=== PATIENT | female | born 1990 | race Caucasian/White ===

== ENCOUNTER → 2016-09-20 | Outpatient (CLI) | payer OTHER, SELFPAY ==
--- NOTE | 2016-09-21 09:06 | US ---
Examination: Greater than 14 weeks transabdominal ultrasound with color Doppler and M-mode evaluatio n. HISTORY: Screening FINDINGS: LMP is 04/21/2016 EVALUATION: Posterior placenta with a cephalic lie and grade 1. Visually amniotic fluid is wit hin normal limits. Three-vessel cord is reported, not well characterized on provided images. Ventricles are within normal limits. Four chamber heart is noted. Heart rate is 145 beats per minute. BIOMETRY AND GESTATIONAL AGE: Biparietal diameter 5.1 cm. The abdominal circumference measures 16.9 cm. The femoral length is 3.5 cm with head circumference of 19 cm. Gestational age is 21 weeks and 3 days. The expected date of de livery is approximately 01/28/2017. Fetus weight is 431 grams. Overall the fetus is within the 34th p ercentile. Other detail anatomy summarized into PACs sheet after the images. No anatomical anomalies. IMPRESSION: Single active IU with cephalic fetus. Posterior placenta with grade 1, no placenta previa. No anomalies are seen. Amniotic fluid appears within normal limits.
== END ==
LOC: MW.US 11:13
CPT/HCPCS: 76805; 76805-26

== ENCOUNTER → 2016-11-04 | Outpatient (CLI) | payer OTHER, SELFPAY | LOC: MW.CHOBGYN 08:22 | PROVIDERS: ATTEND Advanced Practice Midwife | DX: Z34.90 Encounter for supervision of normal pregnancy, unspecified, unspecified trimester (principal) | CPT/HCPCS: 36415; 82950; 85027; 86850 ==

== ENCOUNTER 2017-02-03 00:03 | Inpatient (IN) | payer MEDICAID, OTHER, SELFPAY ==
[2017-02-03] MEDS ORDERED: Sodium Chloride 0.9% 10 ML Syringe FLUSH PRN (00:58)
[2017-02-03] MEDS ORDERED: Terbutaline 1 MG/ML SDV SUBCUT PRN (00:58)
[2017-02-03] MEDS ORDERED: Water For Irrigation,Sterile 1,000 ML Container IRR PRN (00:58)
[2017-02-03] MEDS ORDERED: Sodium Chloride 0.9% 2.5 ML Syringe FLUSH PRN (00:58)
[2017-02-03] MEDS ORDERED: Misoprostol 25 MCG (1/4 of 100 MCG) Tab PO PRN (00:58)
[2017-02-03] MEDS ORDERED: Methylergonovine 0.2 MG/1 ML Amp IM PRN (00:58)
[2017-02-03] MEDS ORDERED: Lidocaine 1% 50 ML MDV INJECT PRN (00:58)
[2017-02-03] MEDS ORDERED: Misoprostol 25 MCG (1/4 of 100 MCG) Tab VAG PRN (00:58)
[2017-02-03] MEDS ORDERED: Carboprost Tromethamine 250 MCG/1 ML Amp IM PRN (00:58)
[2017-02-03] MEDS ORDERED: Misoprostol 200 MCG Tab PO PRN (00:58)
[2017-02-03] MEDS ORDERED: Butorphanol 1 MG/ML SDV IVPUSH PRN (00:58)
[2017-02-03] MEDS ORDERED: Nalbuphine 10 MG/1 ML Vial IVPUSH PRN (00:58)
[2017-02-03] MEDS ORDERED: Misoprostol 25 MCG (1/4 of 100 MCG) Tab PO SCH (01:00)
[2017-02-03] MEDS ORDERED: Oxytocin/Lactated Ringers 30 UNIT/500 ML BAG IV SCH ×2 (01:00)
[2017-02-03] MEDS ORDERED: Misoprostol 25 MCG (1/4 of 100 MCG) Tab VAG SCH (01:00)
[2017-02-03] MEDS: Lactated Ringers 1,000 ML IV SCH ×3 (01:20→11:44)
--- NOTE | 2017-02-03 09:13 | PCM.LDHP ---
L&D History of Present Illness - General Date of Service: 02/03/17 Admit Problem/Dx: Patient Status Order with Admit Dx/Problem 02/03/17 00:58 Patient Status [ADT] Routine Admission Diagnosis/Problem Admission Diagnosis/Problem Source of Information: Patient History Limitations: Reports: No Limitations - History of Present Illness Pain Score: 10 Improves with: Reports: None Worsens with: Reports: None Associated Symptoms: Reports: N - Related Data Allergies/Adverse Reactions: Allergies Allergy/AdvReac Type Severity Reaction Status Date / Time No Known Allergies Allergy Verified 02/03/17 00:58 Past Medical History HAT TRIMMER History: Reports: , Spontaneous - Past Surgical History Female Surgical History: Reports: D&C Social & Family History - Family History Family Medical History: Noncontributory - Tobacco Use Smoking Status *Q: Never Smoker Second Hand Smoke Exposure: No - Caffeine Use Caffeine Use: Reports: Coffee, Soda - Recreational Drug Use Recreational Drug Use: No H&P Review of Systems - Review of Systems: Review Of Systems: See Below General: Reports: No Symptoms HEENT: Reports: No Symptoms Pulmonary: Reports: No Symptoms Cardiovascular: Reports: No Symptoms Gastrointestinal: Reports: No Symptoms Genitourinary: Reports: No Symptoms Musculoskeletal: Reports: No Symptoms Skin: Reports: No Symptoms Psychiatric: Reports: No Symptoms Neurological: Reports: No Symptoms Hematologic/Lymphatic: Reports: No Symptoms Immunologic: Reports: No Symptoms L&D Exam - Exam Exam: See Below - Vital Signs Weight: 63.503 kg - OB Specific Fundal Height In cm: 38 Contraction Intensity: Moderate Movement: Active Heart Tones: Present Presentation: Vertex - Roberson Score Roberson Score Consistency: Soft Roberson Score Effacement: 31-50% Roberson Score Dilation: 1-2 cm Roberson Score Infant's Station: -3 - Exam General: Alert, Oriented HEENT: PERRLA, Conjunctiva Clear, EACs Clear, EOMI, Hearing Intact, Mucosa Moist & [place], Nares Patent, Normal Nasal Septum, Posterior Pharynx Clear, TMs Clear Neck: Supple, Trachea Midline Lungs: Clear to Auscultation, Normal Respiratory Effort Cardiovascular: Regular Rate, Regular Rhythm GI/Abdominal Exam: Normal Bowel Sounds, Soft, Non-Tender, No Organomegaly, No Distention, No Abnormal Bruit, No Mass, Pelvis Stable Rectal Exam: Normal Exam, Normal Rectal Tone Genitourinary: Normal external exam, Normal bimanual exam, Normal speculum exam Back Exam: Normal Inspection, Full Range of Motion Extremities: Normal Inspection, Normal Range of Motion, Non-Tender, No Pedal Edema, Normal Capillary Refill Skin: Warm, Dry, Intact Neurological: Cranial Nerves Intact, Reflexes Equal Bilateral Psychiatric: Alert, Normal Affect, Normal Mood - Patient Data Lab Results Last 24 hrs: Laboratory Results - last 24 hr 02/03/17 02/03/17 Range/Units 01:18 01:18 WBC 12.85 H (4.0-11.0) K/uL RBC 4.05 L (4.30-5.90) M/uL Hgb 10.7 L (12.0-16.0) g/dL Hct 33.6 L (36.0-46.0) % MCV 83.0 (80.0-98.0) fL MCH 26.4 L (27.0-32.0) pg MCHC 31.8 (31.0-37.0) g/dL RDW Std Deviation 53.8 (28.0-62.0) fl RDW Coeff of Daisy 19 H (11.0-15.0) % Plt Count 239 (150-400) K/uL MPV 10.00 (7.40-12.00) fL Blood Type A POSITIVE Antibody Screen NEGATIVE Result Diagrams: 02/03/17 01:18 Problem List Initiated/Reviewed/Updated: Yes Orders Last 24hrs: Active Orders 24 hr Category Date Time Status Patient Status [ADT] Routine ADT 02/03/17 00:58 Active Bedrest Bathroom Privileges [RC] ASDIRECTED Care 02/03/17 00:58 Active Communication Order [RC] ASDIRECTED Care 02/03/17 00:58 Active Communication Order [RC] ASDIRECTED Care 02/03/17 00:58 Active Communication Order [RC] ASDIRECTED Care 02/03/17 00:58 Active Heart Tones [RC] CONTINUOUS Care 02/03/17 00:58 Active Non Stress Test [RC] PER UNIT ROUTINE Care 02/03/17 00:58 Active May Shower [RC] ASDIRECTED Care 02/03/17 00:58 Active Notify Provider [RC] PRN Care 02/03/17 00:58 Active Notify Provider [RC] PRN Care 02/03/17 00:58 Active Notify Provider [RC] PRN Care 02/03/17 00:58 Active Notify Provider [RC] STAT Care 02/03/17 00:58 Active Oxygen Therapy [RC] ASDIRECTED Care 02/03/17 00:58 Active Up ad Alyse [RC] ASDIRECTED Care 02/03/17 00:58 Active Vaginal Exam [RC] PRN Care 02/03/17 00:58 Active Vital Signs [RC] PER UNIT ROUTINE Care 02/03/17 00:58 Active Regular Diet [DIET] Diet 02/03/17 Breakfast Active Butorphanol [Stadol] Med 02/03/17 00:58 Active 1 mg IVPUSH ASDIRECTED PRN Carboprost Tromethamine [Hemabate DS] Med 02/03/17 00:58 Active 250 mcg IM ASDIRECTED PRN Lactated Ringers [Ringers, Lactated] 1,000 ml Med 02/03/17 01:00 Active IV ASDIRECTED Lidocaine 1% [Xylocaine 1%] Med 02/03/17 00:58 Active 50 ml INJECT .ONCE PRN Methylergonovine [Methergine] Med 02/03/17 00:58 Active 0.2 mg IM ASDIRECTED PRN Misoprostol [Cytotec] Med 02/03/17 00:58 Active 200 mcg PO .ONCE PRN Misoprostol [Cytotec] Med 02/03/17 01:00 Active 25 mcg PO .ONCE Misoprostol [Cytotec] Med 02/03/17 00:58 Active 25 mcg PO Q4H PRN Misoprostol [Cytotec] Med 02/03/17 01:00 Active 25 mcg VAG .ONCE Misoprostol [Cytotec] Med 02/03/17 00:58 Active 25 mcg VAG Q4H PRN Nalbuphine [Nubain] Med 02/03/17 00:58 Active 10 mg IVPUSH ASDIRECTED PRN Oxytocin/Lactated Ringers [Pitocin in LR 30 Units/500 Med 02/03/17 01:00 Active ML] 30 unit in 500 ml IV TITRATE Sodium Chloride 0.9% [Saline Flush] Med 02/03/17 00:58 Active 10 ml FLUSH ASDIRECTED PRN Sodium Chloride 0.9% [Saline Flush] Med 02/03/17 00:58 Active 2.5 ml FLUSH ASDIRECTED PRN Terbutaline [Brethine] Med 02/03/17 00:58 Active 0.25 mg SUBCUT ASDIRECTED PRN Water For Irrigation,Sterile [Sterile Water for Med 02/03/17 00:58 Active Irrigation] 1,000 ml IRR ASDIRECTED PRN Scalp Electrode [WOMSER] Per Unit Routine Oth 02/03/17 00:58 Ordered Medication Administration Instruction [OM.PC] Q3H Oth 02/03/17 01:00 Ordered Peripheral IV Insertion Adult [OM.PC] Routine Oth 02/03/17 00:58 Ordered Resuscitation Status Routine Resus Stat 02/03/17 00:58 Ordered Medication Orders Butorphanol Tartrate (Stadol) 1 mg IVPUSH ASDIRECTED PRN PRN Reason: Pain Last Admin: 02/03/17 09:04 Dose: 1 mg Carboprost Tromethamine (Hemabate Ds) 250 mcg IM ASDIRECTED PRN PRN Reason: Post Hemorrhage Lactated Ringer's (Ringers, Lactated) 1,000 mls @ 150 mls/hr IV ASDIRECTED TRAVIS Last Admin: 02/03/17 05:49 Dose: 150 mls/hr Infusion: 02/03/17 05:49 Dose: 150 mls/hr Admin: 02/03/17 01:20 Dose: 150 mls/hr Oxytocin/Lactated Ringer's (Pitocin In Lr 30 Units/500 Ml) 30 unit in 500 mls @ 2 mls/hr IV TITRATE TRAVIS; 2 MUNITS/MIN PRN Reason: Protocol Lidocaine HCl (Xylocaine 1%) 50 ml INJECT .ONCE PRN PRN Reason: Laceration repair Methylergonovine Maleate (Methergine) 0.2 mg IM ASDIRECTED PRN PRN Reason: Post Hemorrhage Misoprostol (Cytotec) 200 mcg PO .ONCE PRN PRN Reason: Post Hemorrhage Misoprostol (Cytotec) 25 mcg VAG .ONCE TRAVIS Last Admin: 02/03/17 01:35 Dose: 25 mcg Misoprostol (Cytotec) 25 mcg VAG Q4H PRN PRN Reason: Cervical Ripening Stop: 02/04/17 04:59 Last Admin: 02/03/17 05:50 Dose: 25 mcg Misoprostol (Cytotec) 25 mcg PO .ONCE TRVAIS Last Admin: 02/03/17 01:36 Dose: 25 mcg Misoprostol (Cytotec) 25 mcg PO Q4H PRN PRN Reason: Cervical Ripening Stop: 02/04/17 04:59 Last Admin: 02/03/17 05:50 Dose: 25 mcg Nalbuphine HCl (Nubain) 10 mg IVPUSH ASDIRECTED PRN PRN Reason: Pain (severe 7-10) Stop: 02/05/17 00:59 Sodium Chloride (Saline Flush) 10 ml FLUSH ASDIRECTED PRN PRN Reason: Keep Vein Open Sodium Chloride (Saline Flush) 2.5 ml FLUSH ASDIRECTED PRN PRN Reason: Keep Vein Open Sterile Water (Sterile Water For Irrigation) 1,000 ml IRR ASDIRECTED PRN PRN Reason: delivery Terbutaline Sulfate (Brethine) 0.25 mg SUBCUT ASDIRECTED PRN PRN Reason: Tacysystole Assessment/Plan Comment:: Postdate P2002 admited for induction.
--- NOTE | 2017-02-03 10:21 | PCM.PREANE ---
Preanesthetic Assessment - Anesthesia/Transfusion/Family Hx Anesthesia History: Prior Anesthesia Without Reaction Transfusion History: No Prior Transfusion(s) - Review of Systems General: No Symptoms Pulmonary: No Symptoms Cardiovascular: No Symptoms Gastrointestinal: No Symptoms Neurological: No Symptoms Other: Reports: None - Physical Assessment Height: 5 ft 5 in Weight: 63.503 kg ASA Class: 2 Mental Status: Alert & Oriented x3 Airway Class: Mallampati = 2 Dentition: Reports: Normal Dentition Thyro-Mental Finger Breadths: 3 Mouth Opening Finger Breadths: 3 ROM/Head Extension: Full Lungs: Clear to Auscultation, Normal Respiratory Effort Cardiovascular: Regular Rate, Regular Rhythm - Lab Values: Laboratory Last Values WBC 12.85 K/uL (4.0-11.0) H 02/03/17 01:18 RBC 4.05 M/uL (4.30-5.90) L 02/03/17 01:18 Hgb 10.7 g/dL (12.0-16.0) L 02/03/17 01:18 Hct 33.6 % (36.0-46.0) L 02/03/17 01:18 MCV 83.0 fL (80.0-98.0) 02/03/17 01:18 MCH 26.4 pg (27.0-32.0) L 02/03/17 01:18 MCHC 31.8 g/dL (31.0-37.0) 02/03/17 01:18 RDW Std Deviation 53.8 fl (28.0-62.0) 02/03/17 01:18 RDW Coeff of Daisy 19 % (11.0-15.0) H 02/03/17 01:18 Plt Count 239 K/uL (150-400) 02/03/17 01:18 MPV 10.00 fL (7.40-12.00) 02/03/17 01:18 Blood Type A POSITIVE 02/03/17 01:18 Antibody Screen NEGATIVE 02/03/17 01:18 - Allergies Allergies/Adverse Reactions: Allergies Allergy/AdvReac Type Severity Reaction Status Date / Time No Known Allergies Allergy Verified 02/03/17 00:58 - Acknowledgements Anesthesia Type Planned: Epidural Pt an Appropriate Candidate for the Planned Anesthesia: Yes Alternatives and Risks of Anesthesia Discussed w Pt/Guardian: Yes Pt/Guardian Understands and Agrees with Anesthesia Plan: Yes PreAnesthesia Questionnaire HEENT History: Reports: None Cardiovascular History: Reports: None Respiratory History: Reports: None Gastrointestinal History: Reports: GERD Genitourinary History: Reports: None MEDICATION NURSE History: Reports: , Spontaneous : 4 Para: 2 LMP (Approximate): Musculoskeletal History: Reports: None Neurological History: Reports: None Psychiatric History: Reports: None Endocrine/Metabolic History: Reports: None Hematologic History: Reports: None Immunologic History: Reports: None Oncologic (Cancer) History: Reports: None Dermatologic History: Reports: None - Infectious Disease History Infectious Disease History: Reports: None - Past Surgical History Female Surgical History: Reports: D&C - SUBSTANCE USE Smoking Status *Q: Never Smoker Second Hand Smoke Exposure: No Recreational Drug Use History: No - CURRENT (IN HOUSE) MEDS Current Meds: Current Medications Butorphanol Tartrate (Stadol) 1 mg IVPUSH ASDIRECTED PRN PRN Reason: Pain Last Admin: 02/03/17 09:04 Dose: 1 mg Carboprost Tromethamine (Hemabate Ds) 250 mcg IM ASDIRECTED PRN PRN Reason: Post Hemorrhage Lactated Ringer's (Ringers, Lactated) 1,000 mls @ 150 mls/hr IV ASDIRECTED TRAVIS Last Admin: 02/03/17 05:49 Dose: 150 mls/hr Oxytocin/Lactated Ringer's (Pitocin In Lr 30 Units/500 Ml) 30 unit in 500 mls @ 2 mls/hr IV TITRATE TRAVIS; 2 MUNITS/MIN PRN Reason: Protocol Lidocaine HCl (Xylocaine 1%) 50 ml INJECT .ONCE PRN PRN Reason: Laceration repair Methylergonovine Maleate (Methergine) 0.2 mg IM ASDIRECTED PRN PRN Reason: Post Hemorrhage Misoprostol (Cytotec) 200 mcg PO .ONCE PRN PRN Reason: Post Hemorrhage Misoprostol (Cytotec) 25 mcg VAG .ONCE TRAVIS Last Admin: 02/03/17 01:35 Dose: 25 mcg Misoprostol (Cytotec) 25 mcg VAG Q4H PRN PRN Reason: Cervical Ripening Stop: 02/04/17 04:59 Last Admin: 02/03/17 05:50 Dose: 25 mcg Misoprostol (Cytotec) 25 mcg PO .ONCE TRAVIS Last Admin: 02/03/17 01:36 Dose: 25 mcg Misoprostol (Cytotec) 25 mcg PO Q4H PRN PRN Reason: Cervical Ripening Stop: 02/04/17 04:59 Last Admin: 02/03/17 05:50 Dose: 25 mcg Nalbuphine HCl (Nubain) 10 mg IVPUSH ASDIRECTED PRN PRN Reason: Pain (severe 7-10) Stop: 02/05/17 00:59 Sodium Chloride (Saline Flush) 10 ml FLUSH ASDIRECTED PRN PRN Reason: Keep Vein Open Sodium Chloride (Saline Flush) 2.5 ml FLUSH ASDIRECTED PRN PRN Reason: Keep Vein Open Sterile Water (Sterile Water For Irrigation) 1,000 ml IRR ASDIRECTED PRN PRN Reason: delivery Terbutaline Sulfate (Brethine) 0.25 mg SUBCUT ASDIRECTED PRN PRN Reason: Tacysystole Discontinued Medications Oxytocin/Lactated Ringer's (Pitocin In Lr 30 Units/500 Ml) 30 unit in 500 mls @ 999 mls/hr IV ASDIRECTED TRAVIS PRN Reason: 999 MUNITS/MIN Stop: 02/03/17 01:31
[2017-02-03] MEDS ORDERED: fentaNYL 100 MCG/2 ML SDV ONE (10:27)
[2017-02-03] MEDS ORDERED: Ropivacaine HCl/PF 100 ML ONE (10:27)
[2017-02-03] MEDS ORDERED: ePHEDrine 50 MG/ML SDV ONE (10:46)
[2017-02-03] MEDS ORDERED: Lanolin 100% Cream 7 GM Tube TOP PRN (12:43)
[2017-02-03] MEDS ORDERED: Docusate Sodium 100 MG Cap PO PRN (12:43)
[2017-02-03] MEDS ORDERED: Witch Hazel Medicated Pads 40/Jar TOP PRN (12:43)
[2017-02-03] MEDS ORDERED: Ibuprofen 400 MG Tab PO PRN (12:43)
[2017-02-03] MEDS ORDERED: Benzocaine/Menthol 20%-0.5% Spray 78 GM Cannister TOP PRN (12:43)
[2017-02-03] MEDS ORDERED: Bisacodyl 10 MG Supp RECTAL PRN (12:43)
[2017-02-03] MEDS ORDERED: Acetaminophen 500 MG Tab PO PRN ×2 (12:43)
[2017-02-03] MEDS: Ibuprofen 800 MG Tab PO PRN (20:27)
[2017-02-04] MEDS: oxyCODONE 5 MG Tab PO PRN ×2 (00:07→02:21)
--- NOTE | 2017-02-04 01:58 | OR ---
SURGEON: Rudolph Shen MD DATE OF PROCEDURE: DELIVERY NOTE: This patient is 26, she is para 2-0-0-2. She is followed in our clinic and primarily by the nurse i o psychologist. She is 40 plus 6. She is admitted for elective induction. We used Cytotec p.o. and vaginally. She responded to that very well. She progressed to 3 cm. She had epidural anesthesia at that time for labor pain and then continued to progress without any problem until became complete-complete. The patient's heart rate was essentially category 1 through the entire process of labor. The patient has attempted pushing and because of the epidural, the patient was unable to accomplish vaginal , so I used a Kiwi vacuum extraction to assist the patient and that was done without any problem. The fetus was delivered, the male cried immediately. score reported 8 and 9. The placenta delivered spontaneous, complete, and intact, and there was no perineal laceration. There was no labial laceration, and there was no need for episiotomy. The estimated blood loss was 250 mL. No complication in this . RAINE / CARMEN /[id number]
--- NOTE | 2017-02-04 07:39 | PCM48HPAN ---
Post Anesthesia Note - EVALUATION WITHIN 48HRS OF ANESTHETIC Vital Signs in Normal Range: Yes Patient Participated in Evaluation: Yes Respiratory Function Stable: Yes Airway Patent: Yes Cardiovascular Function Stable: Yes Hydration Status Stable: Yes Pain Control Satisfactory: Yes Nausea and Vomiting Control Satisfactory: Yes Mental Status Recovered: Yes
--- NOTE | 2017-02-04 09:05 | PCM.PNPP ---
- General Info Date of Service: 02/04/17 Functional Status: Reports: Pain Controlled - Review of Systems General: Reports: No Symptoms HEENT: Reports: No Symptoms Pulmonary: Reports: No Symptoms Cardiovascular: Reports: No Symptoms Gastrointestinal: Reports: No Symptoms Genitourinary: Reports: No Symptoms Musculoskeletal: Reports: No Symptoms Skin: Reports: No Symptoms Neurological: Reports: No Symptoms Psychiatric: Reports: No Symptoms - General Info Date of Service: 02/04/17 - Patient Data Vital Signs - most recent: Last Vital Signs Temp 37.1 C 02/03/17 19:51 Pulse 75 02/03/17 19:51 Resp 15 02/03/17 19:51 BP 91/50 L 02/03/17 19:51 Pulse Ox 97 02/03/17 19:51 Weight - most recent: 63.503 kg Lab Results - last 24 hrs: Laboratory Results - last 24 hr 02/04/17 Range/Units 04:58 Hgb 9.2 L (12.0-16.0) g/dL Hct 29.2 L (36.0-46.0) % Med Orders - Current: Current Medications Acetaminophen (Tylenol Extra Strength) 500 mg PO Q4H PRN PRN Reason: Pain Acetaminophen (Tylenol Extra Strength) 1,000 mg PO Q4H PRN PRN Reason: Pain Benzocaine/Menthol (Dermoplast Pain Relief 20%-0.5% [place]) 78 gm TOP ASDIRECTED PRN PRN Reason: Perineal Comfort Measure Bisacodyl (Dulcolax) 10 mg RECTAL .ONCE PRN PRN Reason: Constipation Docusate Sodium (Colace) 100 mg PO BID PRN PRN Reason: Constipation Emollient Ointment (Lansinoh Hpa) 0 gm TOP ASDIRECTED PRN PRN Reason: Sore Nipples Ibuprofen (Motrin) 400 mg PO Q4H PRN PRN Reason: Pain Last Admin: 02/04/17 02:20 Dose: 400 mg Ibuprofen (Motrin) 800 mg PO Q6H PRN PRN Reason: Pain Last Admin: 02/03/17 20:27 Dose: 800 mg Oxycodone HCl (Oxycodone) 5 mg PO Q2H PRN PRN Reason: Pain Last Admin: 02/04/17 02:21 Dose: 5 mg Witch [place] (Tucks) 1 pad TOP ASDIRECTED PRN PRN Reason: comfort care Discontinued Medications Butorphanol Tartrate (Stadol) 1 mg IVPUSH ASDIRECTED PRN PRN Reason: Pain Last Admin: 02/03/17 09:04 Dose: 1 mg Carboprost Tromethamine (Hemabate Ds) 250 mcg IM ASDIRECTED PRN PRN Reason: Post Hemorrhage Ephedrine Sulfate (Ephedrine Sulfate) Confirm Administered Dose 50 mg .ROUTE .STK-MED ONE Stop: 02/03/17 10:47 Fentanyl (Sublimaze) Confirm Administered Dose 100 mcg .ROUTE .STK-MED ONE Stop: 02/03/17 10:28 Lactated Ringer's (Ringers, Lactated) 1,000 mls @ 150 mls/hr IV ASDIRECTED TRAVIS Last Admin: 02/03/17 11:44 Dose: 150 mls/hr Oxytocin/Lactated Ringer's (Pitocin In Lr 30 Units/500 Ml) 30 unit in 500 mls @ 999 mls/hr IV ASDIRECTED TRAVIS PRN Reason: 999 MUNITS/MIN Stop: 02/03/17 01:31 Last Admin: 02/03/17 12:51 Dose: 999 munits/min, 999 mls/hr Oxytocin/Lactated Ringer's (Pitocin In Lr 30 Units/500 Ml) 30 unit in 500 mls @ 2 mls/hr IV TITRATE TRAVIS; 2 MUNITS/MIN PRN Reason: Protocol Last Admin: 02/03/17 12:21 Dose: 999 munits/min, 999 mls/hr Ropivacaine (Naropin 0.2%) Confirm Administered Dose 100 mls @ as directed .ROUTE .STK-MED ONE Stop: 02/03/17 10:28 Lidocaine HCl (Xylocaine 1%) 50 ml INJECT .ONCE PRN PRN Reason: Laceration repair Methylergonovine Maleate (Methergine) 0.2 mg IM ASDIRECTED PRN PRN Reason: Post Hemorrhage Misoprostol (Cytotec) 200 mcg PO .ONCE PRN PRN Reason: Post Hemorrhage Misoprostol (Cytotec) 25 mcg VAG .ONCE TRAVIS Last Admin: 02/03/17 01:35 Dose: 25 mcg Misoprostol (Cytotec) 25 mcg VAG Q4H PRN PRN Reason: Cervical Ripening Stop: 02/04/17 04:59 Last Admin: 02/03/17 05:50 Dose: 25 mcg Misoprostol (Cytotec) 25 mcg PO .ONCE TRAVIS Last Admin: 02/03/17 01:36 Dose: 25 mcg Misoprostol (Cytotec) 25 mcg PO Q4H PRN PRN Reason: Cervical Ripening Stop: 02/04/17 04:59 Last Admin: 02/03/17 05:50 Dose: 25 mcg Nalbuphine HCl (Nubain) 10 mg IVPUSH ASDIRECTED PRN PRN Reason: Pain (severe 7-10) Stop: 02/05/17 00:59 Sodium Chloride (Saline Flush) 10 ml FLUSH ASDIRECTED PRN PRN Reason: Keep Vein Open Sodium Chloride (Saline Flush) 2.5 ml FLUSH ASDIRECTED PRN PRN Reason: Keep Vein Open Sterile Water (Sterile Water For Irrigation) 1,000 ml IRR ASDIRECTED PRN PRN Reason: delivery Terbutaline Sulfate (Brethine) 0.25 mg SUBCUT ASDIRECTED PRN PRN Reason: Tacysystole - Interaction Infant Disposition, : [place] in Room with Family Interaction: Holding Infant Feeding: Attempted ; Nursed Fair/Poor Support Person: - Recovery Exam Fundal Tone: Firm Fundal Level: 1 Fingerbreadths Below Umbilicus Fundal Placement: Midline Lochia Amount: Scant Lochia Color: Rubra/Red Perineum Description: Intact, Minimal Bruising/Swelling Episiotomy/Laceration: None Bladder Status: Voiding Urinary Elimination: Voided - Exam General: alert, oriented HEENT: Pupils equal Neck: supple Lungs: Clear to Auscultation, Normal Respiratory Effort Cardiovascular: Regular Rate, Regular Rhythm GI/Abdominal Exam: Normal Bowel Sounds, Soft, Non-Tender, No Organomegaly, No Distention, No Abnormal Bruit, No Mass, Pelvis Stable Extremities: Normal Inspection, Normal Range of Motion, Non-Tender, No Pedal Edema, Normal Capillary Refill Skin: warm, dry, intact Wound/Incisions: healing well Neurological: no new focal deficit Psy/Mental Status: alert, normal affect, normal mood - Problem List Review Problem List Initiated/Reviewed/Updated: Yes - My Orders Last 24 Hours: My Active Orders 02/03/17 12:43 Patient Status [ADT] Routine May Shower [RC] ASDIRECTED Up ad Alyse [RC] ASDIRECTED Vital Signs [RC] PER UNIT ROUTINE Acetaminophen [Tylenol Extra Strength] 1,000 mg PO Q4H PRN Acetaminophen [Tylenol Extra Strength] 500 mg PO Q4H PRN Benzocaine/Menthol [Dermoplast Pain Relief 20%-0.5% [place]] 78 gm TOP ASDIRECTED PRN Bisacodyl [Dulcolax] 10 mg RECTAL .ONCE PRN Docusate Sodium [Colace] 100 mg PO BID PRN Ibuprofen [Motrin] 400 mg PO Q4H PRN Ibuprofen [Motrin] 800 mg PO Q6H PRN Lanolin [Lansinoh HPA] See Dose Instructions TOP ASDIRECTED PRN Witch Lauren [Tucks] 1 pad TOP ASDIRECTED PRN oxyCODONE 5 mg PO Q2H PRN Assess Lochia [WOMSER] Per Unit Routine Assess Uterine Involution [WOMSER] Per Unit Routine Peripheral IV Discontinue [OM.PC] Routine Resuscitation Status Routine 02/04/17 Breakfast Regular Diet [DIET] - Assessment Assessment:: Status post normal spontaneous vaginal delivery doing well or sooner home today - Plan Plan:: Postdate P2002 admited for induction.
[2017-02-04] MEDS: Ibuprofen 800 MG Tab PO PRN (10:00)
[2017-02-04 11:06] VITALS: BP 102/55
== END 2017-02-04 17:15 | disposition home or self-care (01) | DRG 775 ==
LOC: MW.OBCHECK 00:03 → MW.OB 00:05 → MW.OBCHECK 00:23 → MW.OB 00:23 → OBSVTOIN 12:34 → MW.OB 15:42
PROVIDERS: ADMIT Obstetrics & Gynecology; ATTEND Obstetrics & Gynecology
PROC: 10D07Z6 Extraction of Products of Conception, Vacuum, Via Natural or Artificial Opening (ICD-10-PCS; principal; 2017-02-03)
PROC: 3E0P7GC Introduction of Other Therapeutic Substance into Female Reproductive, Via Natural or Artificial Opening (ICD-10-PCS; 2017-02-03)
DX: O66.5 Attempted application of vacuum extractor and forceps (principal); Z3A.40 40 weeks gestation of pregnancy; Z37.0 Single live birth
CPT/HCPCS: 01967; 36415; 51703; 59025; 85014; 85018; 85027; 86850; 86900; 86901; A9270-GY; J0595; J7120

== ENCOUNTER 2017-02-21 11:31 | Emergency (ER) | payer OTHER, SELFPAY ==
[2017-02-21] MEDS ORDERED: Sodium Chloride 0.9% 1,000 ML IV ONE (11:42)
--- NOTE | 2017-02-21 12:00 | EDM.PDOC ---
ED HPI GENERAL MEDICAL PROBLEM - General Chief Complaint: Abdominal Pain Stated Complaint: BACK PAIN Time Seen by Provider: 02/21/17 11:35 Source of Information: Reports: Patient, Family History Limitations: Reports: No Limitations - History of Present Illness INITIAL COMMENTS - FREE TEXT/NARRATIVE: History of present illness: 26-year-old female comes in complaining of right-sided lower back pain. Patient is status post 2 weeks vaginal delivery/induction. Patient indicates that she is experiencing pain in her back at the right flank radiating around to her abdomen. Patient does acknowledge that it was a protracted delivery with extensive pushing, as well as the fact she is caring her baby in one of the large plastic carriers. Review of systems: As per history of present illness and below otherwise all systems reviewed and negative. Past medical history: As per history of present illness and as reviewed below otherwise noncontributory. Surgical history: As per history of present illness and as reviewed below otherwise noncontributory. Social history: No reported history of drug or alcohol abuse. Family history: As per history of present illness and as reviewed below otherwise noncontributory. Physical exam: HEENT: Atraumatic, normocephalic, pupils reactive, negative for conjunctival pallor or scleral icterus, mucous membranes moist, throat clear, neck supple, nontender, trachea midline. Lungs: Clear to auscultation, breath sounds equal bilaterally, chest nontender. Heart: S1S2, regular, negative for clicks, rubs, or JVD. Abdomen: Soft, nondistended, nontender. Right-sided flank pain radiating around to right side of her abdomen, Negative for masses or hepatosplenomegaly. Negative for costovertebral tenderness. Pelvis: Stable nontender. Genitourinary: Deferred. Rectal: Deferred. Extremities: Atraumatic, negative for cords or calf pain. Neurovascular unremarkable. Neuro: Awake, alert, oriented. Cranial nerves II through XII unremarkable. Cerebellum unremarkable. Motor and sensory unremarkable throughout. Exam nonfocal. Diagnostics: [UA] Therapeutics: [IV fluid] Impression: [UTI] Plan: [Macrobid] Definitive disposition and diagnosis as appropriate pending reevaluation and review of above. 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 Musculoskeletal History: Reports: None Neurological History: Reports: None Psychiatric History: Reports: None Endocrine/Metabolic History: Reports: None Hematologic History: Reports: None Immunologic History: Reports: None Oncologic (Cancer) History: Reports: None Dermatologic History: Reports: None - Infectious Disease History Infectious Disease History: Reports: None - Past Surgical History Female Surgical History: Reports: D&C Social & Family History - Family History Family Medical History: Noncontributory - Tobacco Use Smoking Status *Q: Never Smoker Second Hand Smoke Exposure: No - Caffeine Use Caffeine Use: Reports: Coffee, Soda - Recreational Drug Use Recreational Drug Use: No ED ROS GENERAL - Review of Systems Review Of Systems: See Below (See history of present illness) ED EXAM, GENERAL - Physical Exam Exam: See Below (See history of present illness) Course - Vital Signs Last Recorded V/S: Last Vital Signs Temp 36.4 C 02/21/17 11:36 Pulse 75 02/21/17 11:36 Resp 18 02/21/17 11:36 BP 120/60 02/21/17 11:36 Pulse Ox 99 02/21/17 11:36 - Orders/Labs/Meds Orders: Active Orders 24 hr Category Date Time Status CULTURE URINE [RM] Stat Lab 02/21/17 12:23 Ordered Sodium Chloride 0.9% [Normal Saline] 1,000 ml Med 02/21/17 11:42 Active IV STAT Medication Orders Sodium Chloride (Normal Saline) 1,000 mls @ 999 mls/hr IV STAT ONE Stop: 02/21/17 12:42 Last Admin: 02/21/17 12:09 Dose: 999 mls/hr Labs: Laboratory Tests 02/21/17 Range/Units 11:40 Urine Color YELLOW Urine Appearance SLT CLOUDY Urine pH 6.0 (5.0-8.0) Ur Specific [place] 1.025 (1.001-1.035) Urine Protein 100 (NEGATIVE) mg/dL Urine Glucose (UA) NEGATIVE (NEGATIVE) mg/dL Urine Ketones NEGATIVE (NEGATIVE) mg/dL Urine Occult Blood LARGE H (NEGATIVE) Urine Nitrite POSITIVE H (NEGATIVE) Urine Bilirubin NEGATIVE (NEGATIVE) Urine Urobilinogen 0.2 (<2.0) EU/dL Ur Leukocyte Esterase MODERATE (NEGATIVE) Urine RBC 5-10 (0-2/HPF) Urine WBC TO NUMEROUS TO COUNT H (0-5/HPF) Ur Epithelial Cells FEW (NONE-FEW) Urine Bacteria 1+ H (NEGATIVE) Meds: Medications Generic Name Dose Route Start Last Admin Trade Name Freq PRN Reason Stop Dose Admin Sodium Chloride 1,000 mls @ 999 mls/hr 02/21/17 11:42 02/21/17 12:09 Normal Saline IV 02/21/17 12:42 999 mls/hr STAT ONE Administration Departure - Departure Time of Disposition: 12:27 Disposition: Home, Self-Care 01 Condition: Good Clinical Impression: UTI (urinary tract infection) - Discharge Information Prescriptions: Nitrofurantoin Monohyd/M-Cryst [Macrobid 100 mg Capsule] 100 mg PO BID #20 capsule Forms: ED Department Discharge Additional Instructions: The following information is given to patients seen in the emergency department who are being discharged to home. This information is to outline your options for follow-up care. We provide all patients seen in our emergency department with a follow-up referral. The need for follow-up, as well as the timing and circumstances, are variable depending upon the specifics of your emergency department visit. If you don't have a primary care physician on staff, we will provide you with a referral. We always advise you to contact your personal physician following an emergency department visit to inform them of the circumstance of the visit and for follow-up with them and/or the need for any referrals to a consulting specialist. The emergency department will also refer you to a specialist when appropriate. This referral assures that you have the opportunity for follow-up care with a specialist. All of these measure are taken in an effort to provide you with optimal care, which includes your follow-up. Under all circumstances we always encourage you to contact your private physician who remains a resource for coordinating your care. When calling for follow-up care, please make the office aware that this follow-up is from your recent emergency room visit. If for any reason you are refused follow-up, please contact the Emergency Department at and asked to speak to the emergency department charge nurse. Take medication as directed Follow-up with PCP 1-2 days Return to ED as needed as discussed - My Orders Last 24 Hours: My Active Orders 02/21/17 11:42 Sodium Chloride 0.9% [Normal Saline] 1,000 ml IV STAT - Assessment/Plan Last 24 Hours: My Active Orders 02/21/17 11:42 Sodium Chloride 0.9% [Normal Saline] 1,000 ml IV STAT
[2017-02-21 13:13] VITALS: BP 114/62
== END 2017-02-21 13:20 | disposition home or self-care (01) ==
LOC: MW.ED 11:31
DX: O86.20 Urinary tract infection following delivery, unspecified (principal); O99.63 Diseases of the digestive system complicating the puerperium; K21.9 Gastro-esophageal reflux disease without esophagitis
CPT/HCPCS: 81001; 87086; 87088; 87186; 96360; 99283; J7040

== ENCOUNTER 2018-09-01 14:40 | Emergency (ER) | payer SELFPAY ==
[2018-09-01 14:52] VITALS: BP 94/60
--- NOTE | 2018-09-01 15:21 | EDM.PDOC ---
ED HPI GENERAL MEDICAL PROBLEM - General Chief Complaint: Abdominal Pain Stated Complaint: SPOKE TO NURSE Time Seen by Provider: 09/01/18 15:21 Source of Information: Reports: Patient History Limitations: Reports: No Limitations - History of Present Illness INITIAL COMMENTS - FREE TEXT/NARRATIVE: HISTORY AND PHYSICAL: History of present illness: Patient is a 27-year-old female here with complaint of abdominal pain x 1 day. She states she has had 2 episodes of vomiting. She denies fevers, chills, diarrhea, dysuria, hematuria. LMP approximately 1 week ago. She also notes that she had some milky appearing discharge from her left breast a few days ago. She denies any breast pain. Review of systems: As per history of present illness and below otherwise all systems reviewed and negative. Past medical history: As per history of present illness and as reviewed below otherwise noncontributory. Surgical history: As per history of present illness and as reviewed below otherwise noncontributory. Social history: No reported history of drug or alcohol abuse. Family history: As per history of present illness and as reviewed below otherwise noncontributory. Physical exam: General: Patient sitting comfortably in no acute distress and nontoxic appearing HEENT: Atraumatic, normocephalic, pupils reactive, negative for conjunctival pallor or scleral icterus, mucous membranes moist, throat clear, neck supple, nontender, trachea midline. No meningeal signs. Lungs: Clear to auscultation, breath sounds equal bilaterally, chest nontender. Heart: S1S2, regular, negative for clicks, rubs, or overt murmur. Breast: No erythema or tenderness to palpation. No masses or areas of fluctuance to palpation. There is a very small amount of yellowish discharge expressed from the left nipple. Abdomen: Soft, nondistended, nontender. Negative for masses or hepatosplenomegaly. Negative for costovertebral tenderness. Pelvis: Stable nontender. Genitourinary: Deferred. Rectal: Deferred. Extremities: Atraumatic, negative for cords or calf pain. Neurovascular unremarkable. Neuro: Awake, alert, oriented. Cranial nerves II through XII unremarkable. Cerebellum unremarkable. Motor and sensory unremarkable throughout. Exam nonfocal. Notes: Advised patient to follow up with her potato sorter regarding the discharge for further evaluation including possible ultrasound and/or mammogram. Return to ED if new or worsening symptoms. Diagnostics: UA, urine hcg Therapeutics: None Prescriptions: None Impression: Viral gastroenteritis, breast discharge Plan: 1. Drink plenty of fluids and bland food as tolerated 2. Follow up with primary care provider and potato sorter as instructed 3. Return to ED as needed as discussed Definitive disposition and diagnosis as appropriate pending reevaluation and review of above. Abdomen Pain Score (Numeric/FACES): 10 - Related Data Allergies Allergy/AdvReac Type Severity Reaction Status Date / Time No Known Allergies Allergy Verified 09/01/18 14:52 Home Meds: Home Meds . 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 Musculoskeletal History: Reports: None Neurological History: Reports: None Psychiatric History: Reports: None Endocrine/Metabolic History: Reports: None Hematologic History: Reports: None Immunologic History: Reports: None Oncologic (Cancer) History: Reports: None Dermatologic History: Reports: None - Infectious Disease History Infectious Disease History: Reports: None - Past Surgical History Female Surgical History: Reports: D&C Social & Family History - Family History Family Medical History: Noncontributory - Tobacco Use Smoking Status *Q: Never Smoker - Caffeine Use Caffeine Use: Reports: Coffee, Soda - Recreational Drug Use Recreational Drug Use: No ED ROS GENERAL - Review of Systems Review Of Systems: ROS reveals no pertinent complaints other than HPI. ED EXAM, GI/ABD - Physical Exam Exam: See Below (see dictation) Course - Vital Signs Last Recorded V/S: Last Vital Signs Temp 96.6 F 09/01/18 14:49 Pulse 85 09/01/18 14:49 Resp 18 09/01/18 14:49 BP 94/60 09/01/18 14:49 Pulse Ox 97 09/01/18 14:49 - Orders/Labs/Meds Labs: Laboratory Tests 09/01/18 09/01/18 Range/Units 15:01 15:01 Urine Color YELLOW Urine Appearance CLEAR Urine pH 6.5 (5.0-8.0) Ur Specific [place] 1.020 (1.001-1.035) Urine Protein NEGATIVE (NEGATIVE) mg/dL Urine Glucose (UA) NEGATIVE (NEGATIVE) mg/dL Urine Ketones NEGATIVE (NEGATIVE) mg/dL Urine Occult Blood NEGATIVE (NEGATIVE) Urine Nitrite NEGATIVE (NEGATIVE) Urine Bilirubin NEGATIVE (NEGATIVE) Urine Urobilinogen 0.2 (<2.0) EU/dL Ur Leukocyte Esterase NEGATIVE (NEGATIVE) Urine HCG, Qual NEGATIVE (NEGATIVE) Departure - Departure Time of Disposition: 15:54 Disposition: Home, Self-Care 01 Condition: Good Clinical Impression: Abdominal pain - Discharge Information Referrals: PCP,None [Primary Care Provider] - Forms: ED Department Discharge Additional Instructions: The following information is given to patients seen in the emergency department who are being discharged to home. This information is to outline your options for follow-up care. We provide all patients seen in our emergency department with a follow-up referral. The need for follow-up, as well as the timing and circumstances, are variable depending upon the specifics of your emergency department visit. If you don't have a primary care physician on staff, we will provide you with a referral. We always advise you to contact your personal physician following an emergency department visit to inform them of the circumstance of the visit and for follow-up with them and/or the need for any referrals to a consulting specialist. The emergency department will also refer you to a specialist when appropriate. This referral assures that you have the opportunity for follow-up care with a specialist. All of these measure are taken in an effort to provide you with optimal care, which includes your follow-up. Under all circumstances we always encourage you to contact your private physician who remains a resource for coordinating your care. When calling for follow-up care, please make the office aware that this follow-up is from your recent emergency room visit. If for any reason you are refused follow-up, please contact the [facility] Emergency Department at and asked to speak to the emergency department charge nurse. [facility] [address] [place] [id number] [facility] - [facility] [address] [place] [id number] 1. Drink plenty of fluids and bland food as tolerated 2. Follow up with primary care provider and potato sorter as instructed 3. Return to ED as needed as discussed
== END 2018-09-01 16:02 | disposition home or self-care (01) ==
LOC: MW.ED 14:40
DX: A08.4 Viral intestinal infection, unspecified (principal); N64.52 Nipple discharge
CPT/HCPCS: 81003; 81025; 99283

== ENCOUNTER 2020-07-03 15:55 | Inpatient (IN) | payer SELFPAY ==
[2020-07-03] MEDS ORDERED: Ondansetron 4 MG/2 ML SDV IVPUSH PRN (22:50)
[2020-07-03] MEDS ORDERED: Misoprostol 25 MCG (1/4 of 100 MCG) Tab PO PRN (22:50)
[2020-07-03] MEDS ORDERED: Tranexamic Acid 1,000 MG in Sodium Chloride 0.9% 100 ML IV PRN (22:50)
[2020-07-03] MEDS ORDERED: Lidocaine 1% 50 ML MDV INJECT PRN (22:50)
[2020-07-03] MEDS ORDERED: Sodium Chloride 0.9% 10 ML Syringe FLUSH PRN (22:50)
[2020-07-03] MEDS ORDERED: Sodium Chloride 0.9% 10 ML SDV IV PRN (22:50)
[2020-07-03] MEDS ORDERED: Misoprostol 25 MCG (1/4 of 100 MCG) Tab VAG PRN (22:50)
[2020-07-03] MEDS ORDERED: Methylergonovine 0.2 MG/1 ML Amp IM PRN (22:50)
[2020-07-03] MEDS ORDERED: Carboprost Tromethamine 250 MCG/1 ML Amp IM PRN (22:50)
[2020-07-03] MEDS ORDERED: Terbutaline 1 MG/ML SDV SUBCUT PRN (22:50)
[2020-07-03] MEDS ORDERED: Water For Irrigation,Sterile 1,000 ML Container IRR PRN (22:50)
[2020-07-03] MEDS ORDERED: Sodium Chloride 0.9% 2.5 ML Syringe FLUSH PRN (22:50)
[2020-07-03] MEDS ORDERED: Misoprostol 200 MCG Tab PO PRN (22:50)
[2020-07-03] MEDS ORDERED: Butorphanol 1 MG/ML SDV IVPUSH PRN (22:50)
[2020-07-03] MEDS ORDERED: Nalbuphine 10 MG/1 ML Vial IVPUSH PRN (22:50)
[2020-07-03] MEDS ORDERED: Oxytocin/0.9 % Sodium Chloride 30 UNIT/500 ML BAG IV SCH ×2 (23:00)
--- NOTE | 2020-07-03 23:08 | PCM.LDHP ---
L&D History of Present Illness - General Date of Service: 07/03/20 Admit Problem/Dx: Patient Status Order with Admit Dx/Problem 07/03/20 22:50 Patient Status [ADT] Routine Admission Diagnosis/Problem Admission Diagnosis/Problem 07/03/20 23:04 Marisa is a 29 yo at 39+2 weeks gestation (YASMIN 07/08/2020) that returns to L&D today with C/O leaking of clear fluid since 3:00 pm today confirmed with [facility]. Patient returns for in-patient observation after a brief visit home to complete personal matters; reactive NST, previous SVE C/T/H, confirmed vertex presentation via Haim's and TAUS at bedside all obtained prior to departure ~3 hours ago. Reports adequate movement. Denies pain/contractions and asa vaginal bleeding at this time. A pos, RI, GBS neg. Pertinent medical history includes: OVD with kiwi vacuum for maternal exhaustion last . NKDA. Medications: PNV. Patient has no other complaints or concerns at this time. 07/03/20 23:09 Source of Information: Patient History Limitations: Reports: No Limitations - History of Present Illness Improves with: Reports: None Worsens with: Reports: None Associated Symptoms: Reports: N - Related Data Allergies/Adverse Reactions: Allergies Allergy/AdvReac Type Severity Reaction Status Date / Time No Known Allergies Allergy Verified 07/03/20 17:06 Home Medications: Home Meds Pnv No.95/Ferrous Fum/Folic AC [ Caplet] 1 tab PO DAILY 07/03/20 [History] Past Medical History - Past Health History Medical/Surgical History: Denies Medical/Surgical History HEENT History: Reports: None Cardiovascular History: Reports: None Respiratory History: Reports: None Gastrointestinal History: Reports: GERD Genitourinary History: Reports: None 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: , 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 , Other (See Below) (OVD with Kiwi vacuum last for maternal exhaustion) : 5 Para: 3 LMP (Approximate): Musculoskeletal History: Reports: None Neurological History: Reports: None Psychiatric History: Reports: None Endocrine/Metabolic History: Reports: None Hematologic History: Reports: None Immunologic History: Reports: None Oncologic (Cancer) History: Reports: None Dermatologic History: Reports: None - Infectious Disease History Infectious Disease History: Reports: None - Past Surgical History Female Surgical History: Reports: D&C Social & Family History - Family History Family Medical History: No Pertinent Family History HEENT: Reports: None Cardiac: Reports: None Respiratory: Reports: None GI: Reports: None : Reports: None OBGYN: Reports: None Musculoskeletal: Reports: None Psychiatric: Reports: None Endocrine/Metabolic: Reports: Diabetes, type II - Tobacco Use Tobacco Use Status *Q: Never Tobacco User - Caffeine Use Caffeine Use: Reports: Coffee, Soda - Alcohol Use Alcohol Use History: No H&P Review of Systems - Review of Systems: Review Of Systems: Comprehensive ROS is negative, except as noted in HPI. General: Reports: No Symptoms HEENT: Reports: No Symptoms Pulmonary: Reports: No Symptoms Cardiovascular: Reports: No Symptoms Gastrointestinal: Reports: No Symptoms Genitourinary: Reports: No Symptoms Musculoskeletal: Reports: No Symptoms Skin: Reports: No Symptoms Psychiatric: Reports: No Symptoms Neurological: Reports: No Symptoms Hematologic/Lymphatic: Reports: No Symptoms Immunologic: Reports: No Symptoms L&D Exam - Exam Exam: See Below - Vital Signs Vital Signs: Hemodynamically stable, afebrile. See flowsheet. - OB Specific Fundal Height In cm: 39 Contraction Intensity: Irritability Movement: Active Heart Tones: Present Heart Tones per Min: 135 Heart Rate (FHR) Variability: Moderate (6-25 bmp) Presentation: Vertex - Roberson Score Roberson Score Cervix Position: Midposition Roberson Score Consistency: Soft Roberson Score Effacement: 51-70% Roberson Score Dilation: 1-2 cm Roberson Score Infant's Station: -2 Roberson Score Total: 7 - Exam General: Alert, Oriented, Cooperative HEENT: Conjunctiva Clear, Hearing Intact, Mucosa Moist & [place], PERRLA Neck: Supple, Trachea Midline Lungs: Clear to Auscultation, Normal Respiratory Effort Cardiovascular: Regular Rate, Regular Rhythm GI/Abdominal Exam: Normal Bowel Sounds, Soft, Non-Tender, No Organomegaly, No Distention Rectal Exam: Deferred Genitourinary: Normal external exam, Normal bimanual exam, Normal speculum exam, Enlarged uterus (Gravid uterus), Vaginal discharge (Small to moderate clear amnitoic fluid, SROM) Back Exam: Normal Inspection, Full Range of Motion Extremities: Normal Inspection, Normal Range of Motion, Non-Tender, No Pedal Edema, Normal Capillary Refill Skin: Warm, Dry, Intact Neurological: Cranial Nerves Intact, Reflexes Equal Bilateral Psychiatric: Alert, Normal Affect, Normal Mood - Problem List (1) SROM (spontaneous rupture of membranes) SNOMED Code(s): 863993018 ICD Code: [id number] - Status: Acute Priority: High Current Visit: Yes (2) 39 weeks gestation of SNOMED Code(s): 94972437 ICD Code: Z3A.39 - 39 WEEKS GESTATION OF Status: Acute Priority: High Current Visit: Yes Problem List Initiated/Reviewed/Updated: Yes Orders Last 24hrs: Active Orders 24 hr Category Date Time Status Patient Status [ADT] Routine ADT 07/03/20 22:50 Active Bedrest Bathroom Privileges [RC] ASDIRECTED Care 07/03/20 22:50 Active Communication Order [RC] ASDIRECTED Care 07/03/20 22:50 Active Communication Order [RC] ASDIRECTED Care 07/03/20 22:50 Active Communication Order [RC] ASDIRECTED Care 07/03/20 22:50 Active Heart Tones [RC] CONTINUOUS Care 07/03/20 22:50 Active Non Stress Test [RC] PER UNIT ROUTINE Care 07/03/20 22:50 Active May Shower [RC] ASDIRECTED Care 07/03/20 22:50 Active Notify Provider [RC] PRN Care 07/03/20 22:50 Active Notify Provider [RC] PRN Care 07/03/20 22:50 Active Notify Provider [RC] PRN Care 07/03/20 22:50 Active Notify Provider [RC] STAT Care 07/03/20 22:50 Active Oxygen Therapy [RC] ASDIRECTED Care 07/03/20 22:50 Active Peripheral IV Care [RC] . DIRECTED Care 07/03/20 22:50 Active Up ad Alyse [RC] ASDIRECTED Care 07/03/20 22:50 Active Vaginal Exam [RC] PRN Care 07/03/20 22:50 Active Vaginal Exam [RC] PRN Care 07/03/20 22:50 Active Vital Signs [RC] PER UNIT ROUTINE Care 07/03/20 22:50 Active Vital Signs [RC] PER UNIT ROUTINE Care 07/03/20 22:50 Active CBC W/O DIFF,HEMOGRAM [HEME] Routine Lab 07/03/20 22:50 Ordered RPR (SYPHILIS SERO) W/ RFLX [REF] Routine Lab 07/03/20 22:50 Ordered TYPE AND SCREEN [BBK] Routine Lab 07/03/20 22:50 Ordered Butorphanol [Stadol] Med 07/03/20 22:50 Active 1 mg IVPUSH Q1H PRN Carboprost Tromethamine [Hemabate DS] Med 07/03/20 22:50 Active 250 mcg IM ASDIRECTED PRN Lactated Ringers [Ringers, Lactated] 1,000 ml Med 07/03/20 23:00 Active IV ASDIRECTED Lidocaine 1% [Xylocaine 1%] Med 07/03/20 22:50 Active 50 ml INJECT ONETIME PRN Methylergonovine [Methergine] Med 07/03/20 22:50 Active 0.2 mg IM ASDIRECTED PRN Nalbuphine [Nubain] Med 07/03/20 22:50 Active 10 mg IVPUSH Q1H PRN Ondansetron [Zofran] Med 07/03/20 22:50 Active 4 mg IVPUSH Q6H PRN Oxytocin/0.9 % Sodium Chloride [Oxytocin 30 Unit/500 ML Med 07/03/20 23:00 Active -NS] 30 unit in 500 ml IV TITRATE Oxytocin/0.9 % Sodium Chloride [Oxytocin 30 Unit/500 ML Med 07/03/20 23:00 Active -NS] 30 unit in 500 ml IV TITRATE Sodium Chloride 0.9% [Normal Saline] Med 07/03/20 22:50 Active 10 ml IV ASDIRECTED PRN Sodium Chloride 0.9% [Saline Flush] Med 07/03/20 22:50 Active 10 ml FLUSH ASDIRECTED PRN Sodium Chloride 0.9% [Saline Flush] Med 07/03/20 22:50 Active 2.5 ml FLUSH ASDIRECTED PRN Terbutaline [Brethine] Med 07/03/20 22:50 Active 0.25 mg SUBCUT ASDIRECTED PRN Tranexamic Acid [Cyklokapron] 1,000 mg Med 07/03/20 22:50 Active Sodium Chloride 0.9% [Normal Saline] 100 ml IV ONETIME Water For Irrigation,Sterile [Sterile Water for Med 07/03/20 22:50 Active Irrigation] 1,000 ml IRR ASDIRECTED PRN miSOPROStoL [Cytotec] Med 07/03/20 22:50 Active 200 mcg PO ONETIME PRN miSOPROStoL [Cytotec] Med 07/03/20 22:50 Active 25 mcg PO ONETIME PRN miSOPROStoL [Cytotec] Med 07/03/20 22:50 Active 25 mcg VAG ONETIME PRN Scalp Electrode [WOMSER] Per Unit Routine Oth 07/03/20 22:50 Ordered Medication Administration Instruction [OM.PC] Q3H Oth 07/03/20 23:00 Ordered Peripheral IV Insertion Adult [OM.PC] Routine Oth 07/03/20 22:50 Ordered Resuscitation Status Routine Resus Stat 07/03/20 22:50 Ordered Medication Orders Butorphanol Tartrate (Stadol) 1 mg IVPUSH Q1H PRN PRN Reason: Pain Carboprost Tromethamine (Hemabate Ds) 250 mcg IM ASDIRECTED PRN PRN Reason: Post Hemorrhage Oxytocin/Sodium Chloride (Oxytocin 30 Unit/500 Ml-Ns) 30 unit in 500 mls @ 999 mls/hr IV TITRATE [facility] Tranexamic Acid 1,000 mg/ (Sodium Chloride) 110 mls @ 660 mls/hr IV ONETIME PRN PRN Reason: Bleeding Oxytocin/Sodium Chloride (Oxytocin 30 Unit/500 Ml-Ns) 30 unit in 500 mls @ 2 mls/hr IV TITRATE [facility]; Protocol Lactated Ringer's (Ringers, Lactated) 1,000 mls @ 150 mls/hr IV ASDIRECTED TRAVIS Lidocaine HCl (Xylocaine 1%) 50 ml INJECT ONETIME PRN PRN Reason: Laceration repair Methylergonovine Maleate (Methergine) 0.2 mg IM ASDIRECTED PRN PRN Reason: Post Hemorrhage Misoprostol (Cytotec) 200 mcg PO ONETIME PRN PRN Reason: Post Hemorrhage Misoprostol (Cytotec) 25 mcg VAG ONETIME PRN PRN Reason: Cervical Ripening Misoprostol (Cytotec) 25 mcg PO ONETIME PRN PRN Reason: Cervical Ripening Nalbuphine HCl (Nubain) 10 mg IVPUSH Q1H PRN PRN Reason: Pain (severe 7-10) Ondansetron HCl (Zofran) 4 mg IVPUSH Q6H PRN PRN Reason: Nausea/Vomiting Sodium Chloride (Saline Flush) 10 ml FLUSH ASDIRECTED PRN PRN Reason: Keep Vein Open Sodium Chloride (Saline Flush) 2.5 ml FLUSH ASDIRECTED PRN PRN Reason: Keep Vein Open Sodium Chloride (Normal Saline) 10 ml IV ASDIRECTED PRN PRN Reason: IV Use Sterile Water (Sterile Water For Irrigation) 1,000 ml IRR ASDIRECTED PRN PRN Reason: delivery Terbutaline Sulfate (Brethine) 0.25 mg SUBCUT ASDIRECTED PRN PRN Reason: Tacysystole Assessment/Plan Comment:: SROM confirmed via [facility]. Admit for observation in anticipation of of term viable . FHR Cat I. Uterine irritability with occasional contractions noted. Expectant management, reassess cervical dilation between 0000 and 0200. If no change has been make, may administer cytotec per orders. May ambulate and hydrotherapy as desired after reactive NST achieved; repeat NST per orders. May receive epidural if desired between 4-5 cm[address] new orders. Dr. Shen notified and agreeable with POC.
[2020-07-04] MEDS: Lactated Ringers 1,000 ML IV SCH ×4 (03:30→15:20)
[2020-07-04] MEDS ORDERED: fentaNYL 100 MCG/2 ML SDV ONE (04:55)
[2020-07-04] MEDS ORDERED: Ropivacaine 0.2% PF 2 MG/ML 20 ML SDV ONE (04:55)
[2020-07-04] MEDS ORDERED: Ropivacaine HCl/PF 100 ML ONE (04:56)
--- NOTE | 2020-07-04 05:36 | PCM.PREANE ---
Preanesthetic Assessment - Anesthesia/Transfusion/Family Hx Anesthesia History: Prior Anesthesia Without Reaction Family History of Anesthesia Reaction: No Transfusion History: No Prior Transfusion(s) Intubation History: Unknown - Review of Systems General: No Symptoms Pulmonary: No Symptoms Cardiovascular: No Symptoms Gastrointestinal: No Symptoms Neurological: No Symptoms Other: Reports: None - Physical Assessment NPO Status Date: 07/04/20 NPO Status Time: 04:00 (Clear) Height: 1.65 m Weight: 72.575 kg ASA Class: 2 Mental Status: Alert & Oriented x3 Airway Class: Mallampati = 1 Dentition: Reports: Normal Dentition Thyro-Mental Finger Breadths: 3 Mouth Opening Finger Breadths: 1 ROM/Head Extension: Full Lungs: Clear to Auscultation Cardiovascular: Regular Rate - Allergies Allergies/Adverse Reactions: Allergies Allergy/AdvReac Type Severity Reaction Status Date / Time No Known Allergies Allergy Verified 07/03/20 17:06 - Blood Blood Available: No Product(s) Available: None - Anesthesia Plan Pre-Op Medication Ordered: None - Acknowledgements Anesthesia Type Planned: Epidural Pt an Appropriate Candidate for the Planned Anesthesia: Yes Alternatives and Risks of Anesthesia Discussed w Pt/Guardian: Yes Pt/Guardian Understands and Agrees with Anesthesia Plan: Yes Additional Comments: active labor, 5cm. On pitocin. Pain7/10. Requests GENI. Discussed, ? 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 Wishes to proceed. 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 Musculoskeletal History: Reports: None Neurological History: Reports: None Psychiatric History: Reports: None Endocrine/Metabolic History: Reports: None Hematologic History: Reports: None Immunologic History: Reports: None Oncologic (Cancer) History: Reports: None Dermatologic History: Reports: None - Infectious Disease History Infectious Disease History: Reports: None - Past Surgical History GI Surgical History: Reports: None Female Surgical History: Reports: D&C Endocrine Surgical History: Reports: None - SUBSTANCE USE Tobacco Use Status *Q: Never Tobacco User Tobacco Use Within Last Twelve Months: No Second Hand Smoke Exposure: No Recreational Drug Use History: No - HOME MEDS Home Medications: Home Meds Pnv No.95/Ferrous Fum/Folic AC [ Caplet] 1 tab PO DAILY 07/03/20 [History] - CURRENT (IN HOUSE) MEDS Current Meds: Current Medications Butorphanol Tartrate (Stadol) 1 mg IVPUSH Q1H PRN PRN Reason: Pain Carboprost Tromethamine (Hemabate Ds) 250 mcg IM ASDIRECTED PRN PRN Reason: Post Hemorrhage Oxytocin/Sodium Chloride (Oxytocin 30 Unit/500 Ml-Ns) 30 unit in 500 mls @ 999 mls/hr IV TITRATE [facility] Tranexamic Acid 1,000 mg/ (Sodium Chloride) 110 mls @ 660 mls/hr IV ONETIME PRN PRN Reason: Bleeding Oxytocin/Sodium Chloride (Oxytocin 30 Unit/500 Ml-Ns) 30 unit in 500 mls @ 2 mls/hr IV TITRATE [facility]; Protocol Last Admin: 07/04/20 03:32 Dose: 2 munits/min, 2 mls/hr Documented by: Lactated Ringer's (Ringers, Lactated) 1,000 mls @ 150 mls/hr IV ASDIRECTED TRAVIS Last Admin: 07/04/20 05:15 Dose: 150 mls/hr Documented by: Lidocaine HCl (Xylocaine 1%) 50 ml INJECT ONETIME PRN PRN Reason: Laceration repair Methylergonovine Maleate (Methergine) 0.2 mg IM ASDIRECTED PRN PRN Reason: Post Hemorrhage Misoprostol (Cytotec) 200 mcg PO ONETIME PRN PRN Reason: Post Hemorrhage Misoprostol (Cytotec) 25 mcg VAG ONETIME PRN PRN Reason: Cervical Ripening Misoprostol (Cytotec) 25 mcg PO ONETIME PRN PRN Reason: Cervical Ripening Nalbuphine HCl (Nubain) 10 mg IVPUSH Q1H PRN PRN Reason: Pain (severe 7-10) Ondansetron HCl (Zofran) 4 mg IVPUSH Q6H PRN PRN Reason: Nausea/Vomiting Sodium Chloride (Saline Flush) 10 ml FLUSH ASDIRECTED PRN PRN Reason: Keep Vein Open Sodium Chloride (Saline Flush) 2.5 ml FLUSH ASDIRECTED PRN PRN Reason: Keep Vein Open Sodium Chloride (Normal Saline) 10 ml IV ASDIRECTED PRN PRN Reason: IV Use Sterile Water (Sterile Water For Irrigation) 1,000 ml IRR ASDIRECTED PRN PRN Reason: delivery Terbutaline Sulfate (Brethine) 0.25 mg SUBCUT ASDIRECTED PRN PRN Reason: Tacysystole Discontinued Medications Fentanyl (Sublimaze) Confirm Administered Dose 100 mcg .ROUTE .STK-MED ONE Stop: 07/04/20 04:56 Ropivacaine (Naropin 0.2%) Confirm Administered Dose 100 mls @ as directed .ROUTE .STK-MED ONE Stop: 07/04/20 04:57 Ropivacaine (Naropin 0.2%) Confirm Administered Dose 20 ml .ROUTE .STK-MED ONE Stop: 07/04/20 04:56
--- NOTE | 2020-07-04 08:24 | PCM.PNLD ---
Labor Progress Note - VS & Meds Vital Signs: BP 96/54; HR 70; O2 at 96% on RA; RR 14. T 98.2 Active Medications: Current Medications Butorphanol Tartrate (Stadol) 1 mg IVPUSH Q1H PRN PRN Reason: Pain Carboprost Tromethamine (Hemabate Ds) 250 mcg IM ASDIRECTED PRN PRN Reason: Post Hemorrhage Oxytocin/Sodium Chloride (Oxytocin 30 Unit/500 Ml-Ns) 30 unit in 500 mls @ 999 mls/hr IV TITRATE [facility] Tranexamic Acid 1,000 mg/ (Sodium Chloride) 110 mls @ 660 mls/hr IV ONETIME PRN PRN Reason: Bleeding Oxytocin/Sodium Chloride (Oxytocin 30 Unit/500 Ml-Ns) 30 unit in 500 mls @ 2 mls/hr IV TITRATE [facility]; Protocol Last Titration: 07/04/20 07:20 Dose: 8 munits/min, 8 mls/hr Documented by: Lactated Ringer's (Ringers, Lactated) 1,000 mls @ 150 mls/hr IV ASDIRECTED TRAVIS Last Admin: 07/04/20 05:15 Dose: 150 mls/hr Documented by: Lidocaine HCl (Xylocaine 1%) 50 ml INJECT ONETIME PRN PRN Reason: Laceration repair Methylergonovine Maleate (Methergine) 0.2 mg IM ASDIRECTED PRN PRN Reason: Post Hemorrhage Misoprostol (Cytotec) 200 mcg PO ONETIME PRN PRN Reason: Post Hemorrhage Misoprostol (Cytotec) 25 mcg VAG ONETIME PRN PRN Reason: Cervical Ripening Misoprostol (Cytotec) 25 mcg PO ONETIME PRN PRN Reason: Cervical Ripening Nalbuphine HCl (Nubain) 10 mg IVPUSH Q1H PRN PRN Reason: Pain (severe 7-10) Ondansetron HCl (Zofran) 4 mg IVPUSH Q6H PRN PRN Reason: Nausea/Vomiting Sodium Chloride (Saline Flush) 10 ml FLUSH ASDIRECTED PRN PRN Reason: Keep Vein Open Sodium Chloride (Saline Flush) 2.5 ml FLUSH ASDIRECTED PRN PRN Reason: Keep Vein Open Sodium Chloride (Normal Saline) 10 ml IV ASDIRECTED PRN PRN Reason: IV Use Sterile Water (Sterile Water For Irrigation) 1,000 ml IRR ASDIRECTED PRN PRN Reason: delivery Terbutaline Sulfate (Brethine) 0.25 mg SUBCUT ASDIRECTED PRN PRN Reason: Tacysystole Discontinued Medications Fentanyl (Sublimaze) Confirm Administered Dose 100 mcg .ROUTE .STK-MED ONE Stop: 07/04/20 04:56 Ropivacaine (Naropin 0.2%) Confirm Administered Dose 100 mls @ as directed .ROUTE .STK-MED ONE Stop: 07/04/20 04:57 Ropivacaine (Naropin 0.2%) Confirm Administered Dose 20 ml .ROUTE .STK-MED ONE Stop: 07/04/20 04:56 - Uterine Contractions Uterine Monitoring Mode: External [place]a Contraction Frequency (min): 2-3 Contraction Duration (sec): 50-60 Contraction Intensity: Moderate Uterine Resting Tone: Soft - Monitoring Monitor Mode: External Ultrasound Heart Rate (FHR) Baseline: 130 Heart Rate (FHR) Variability: Moderate (6-25 bmp) Accelerations: Present, 15x15 Decelerations: Early, Variable Strip Review: Category II - Vaginal Exam Dilation (cm): 4-5 Effacement (Percent): 70 Station: -1 Cervical Position: Midposition - Labor Progress (Free Text) Labor Progress: Marisa is a 29 yo at 39+3 weeks gestation (YASMIN 07/08/2020) admitted for observation in preparation of . SROM clear fluid since 3:00 pm 07/03/2020 (17 hours) confirmed with [facility]. Reports adequate movement. BLE epidural in place, adequate analgesia. Denies pain/contractions and asa vaginal bleeding at this time. A pos, RI, GBS neg. Pertinent medical history includes: OVD with kiwi vacuum for maternal exhaustion last . NKDA. Medications: PNV. Pitocin augmentation at 6 millunits/min, contractions every 2-3 min lasting 50-60 seconds, moderate to palpation, soft resting tone. Hemodynamically stable, afebrile. FHR Cat II, intermittent variables. Plan to continue with pitocin titration to maintain adequate contraction pattern. Consider IUPC if cervical change not made within 4-6 hours. Continue with augmentation POC in anticipation of . Dr. Shen notified and agreeable with POC.
[2020-07-04] MEDS ORDERED: Witch Hazel Medicated Pads 40/Jar TOP PRN (16:14)
[2020-07-04] MEDS ORDERED: Acetaminophen 500 MG Tab PO PRN ×2 (16:14)
[2020-07-04] MEDS ORDERED: Docusate Sodium 100 MG Cap PO PRN (16:14)
[2020-07-04] MEDS ORDERED: Bisacodyl 10 MG Supp RECTAL PRN (16:14)
[2020-07-04] MEDS ORDERED: Ibuprofen 400 MG Tab PO PRN (16:14)
[2020-07-04] MEDS ORDERED: Lanolin 100% Cream 7 GM Tube TOP PRN (16:14)
[2020-07-04] MEDS ORDERED: oxyCODONE 5 MG Tab PO PRN (16:14)
[2020-07-04] MEDS ORDERED: Benzocaine/Menthol 20%-0.5% Spray 78 GM Cannister TOP PRN (16:14)
--- NOTE | 2020-07-04 16:20 | PCM.DEL ---
L & D Note - General Info Date of Service: 07/04/20 Mother's Due Date: 07/08/20 - Delivery Note Labor: Spontaneous, Augmented by Oxytocin Delivery Outcome: Livebirth Infant Delivery Method: Spontaneous Vaginal Delivery-Single Presentation: Vertex Nuchal Cord: None Anesthesia Type: Epidural Episiotomy Type: None Laceration: None Placenta: Intact, Spontaneous Cord: 3 Vessels Estimated Blood Loss: 250 Resuscitation Needed: No Score 1 min: 8 Score 5 min: 9 Second Stage Interventions: Reports: Second Nurse Assessed Progress of Descent, Second Nurse Reviewed Contraction Pattern, Second Nurse Reviewed Heart Tones, Encouragement Given, Pushing Effectively, Pushing, Pulls Own Legs Back Delivery Comments (Free Text/Narrative):: viable female at 1555; epidural for pain relief; head delivered with good pushing, shoulders and body followed easily after; baby immediately to mom's abdomen, [id number] for assessment; APGARs 8/9; weight pending; cord doubly clamped after cessation of pulsing, cut by FOB; placenta delivered grossly intact, mark; 3VC; EBL 250 mL; perineum intact; pitocin to IVF; mom and baby left in stable condition with nurse at bedside for assessment - General Info Date of Service: 07/04/20 Admission Dx/Problem (Free Text): Patient Status Order with Admit Dx/Problem 07/03/20 22:50 Patient Status [ADT] Routine Admission Diagnosis/Problem Admission Diagnosis/Problem 07/03/20 23:04 Marisa is a 29 yo at 39+2 weeks gestation (YASMIN 07/08/2020) that returns to L&D today with C/O leaking of clear fluid since 3:00 pm today confirmed with [facility]. Patient returns for in-patient observation after a brief visit home to complete personal matters; reactive NST, previous SVE C/T/H, confirmed vertex presentation via Haim's and TAUS at bedside all obtained prior to departure ~3 hours ago. Reports adequate movement. Denies pain/contractions and asa vaginal bleeding at this time. A pos, RI, GBS neg. Pertinent medical history includes: OVD with kiwi vacuum for maternal exhaustion last . NKDA. Medications: PNV. Patient has no other complaints or concerns at this time. 07/03/20 23:09 Functional Status: Reports: Pain Controlled - Review of Systems General: Reports: No Symptoms HEENT: Reports: No Symptoms Pulmonary: Reports: No Symptoms Cardiovascular: Reports: No Symptoms Gastrointestinal: Reports: No Symptoms Genitourinary: Reports: No Symptoms Musculoskeletal: Reports: No Symptoms Skin: Reports: No Symptoms Neurological: Reports: No Symptoms Psychiatric: Reports: No Symptoms - Patient Data Vitals - Most Recent: Last Vital Signs Temp 98.2 F 07/04/20 07:30 Pulse 87 07/04/20 07:30 Resp 14 07/04/20 07:30 BP Pulse Ox 98 07/04/20 07:30 Weight - Most Recent: 160 lb Med Orders - Current: Current Medications Acetaminophen (Tylenol Extra Strength) 500 mg PO Q4H PRN PRN Reason: Pain Acetaminophen (Tylenol Extra Strength) 1,000 mg PO Q4H PRN PRN Reason: Pain Benzocaine/Menthol (Dermoplast Pain Relief 20%-0.5% [place]) 78 gm TOP ASDIRECTED PRN PRN Reason: Perineal Comfort Measure Bisacodyl (Dulcolax) 10 mg RECTAL ONETIME PRN PRN Reason: Constipation Docusate Sodium (Colace) 100 mg PO BID PRN PRN Reason: Constipation Emollient Ointment (Lansinoh Hpa) 0 gm TOP ASDIRECTED PRN PRN Reason: Sore Nipples Ibuprofen (Motrin) 400 mg PO Q4H PRN PRN Reason: Pain Ibuprofen (Motrin) 800 mg PO Q6H PRN PRN Reason: Pain Oxycodone HCl (Oxycodone) 5 mg PO Q2H PRN PRN Reason: Pain Witch Lauren (Tucks) 1 pad TOP ASDIRECTED PRN PRN Reason: comfort care Discontinued Medications Butorphanol Tartrate (Stadol) 1 mg IVPUSH Q1H PRN PRN Reason: Pain Carboprost Tromethamine (Hemabate Ds) 250 mcg IM ASDIRECTED PRN PRN Reason: Post Hemorrhage Fentanyl (Sublimaze) Confirm Administered Dose 100 mcg .ROUTE .STK-MED ONE Stop: 07/04/20 04:56 Oxytocin/Sodium Chloride (Oxytocin 30 Unit/500 Ml-Ns) 30 unit in 500 mls @ 999 mls/hr IV TITRATE TRAVIS Tranexamic Acid 1,000 mg/ (Sodium Chloride) 110 mls @ 660 mls/hr IV ONETIME PRN PRN Reason: Bleeding Oxytocin/Sodium Chloride (Oxytocin 30 Unit/500 Ml-Ns) 30 unit in 500 mls @ 2 mls/hr IV TITRATE TRAVIS; Protocol Last Titration: 07/04/20 12:59 Dose: 8 munits/min, 8 mls/hr Documented by: Lactated Ringer's (Ringers, Lactated) 1,000 mls @ 150 mls/hr IV ASDIRECTED TRAVIS Last Admin: 07/04/20 15:20 Dose: 150 mls/hr Documented by: Ropivacaine (Naropin 0.2%) Confirm Administered Dose 100 mls @ as directed .ROUTE .STK-MED ONE Stop: 07/04/20 04:57 Lidocaine HCl (Xylocaine 1%) 50 ml INJECT ONETIME PRN PRN Reason: Laceration repair Methylergonovine Maleate (Methergine) 0.2 mg IM ASDIRECTED PRN PRN Reason: Post Hemorrhage Misoprostol (Cytotec) 200 mcg PO ONETIME PRN PRN Reason: Post Hemorrhage Misoprostol (Cytotec) 25 mcg VAG ONETIME PRN PRN Reason: Cervical Ripening Misoprostol (Cytotec) 25 mcg PO ONETIME PRN PRN Reason: Cervical Ripening Nalbuphine HCl (Nubain) 10 mg IVPUSH Q1H PRN PRN Reason: Pain (severe 7-10) Ondansetron HCl (Zofran) 4 mg IVPUSH Q6H PRN PRN Reason: Nausea/Vomiting Ropivacaine (Naropin 0.2%) Confirm Administered Dose 20 ml .ROUTE .STK-MED ONE Stop: 07/04/20 04:56 Sodium Chloride (Saline Flush) 10 ml FLUSH ASDIRECTED PRN PRN Reason: Keep Vein Open Sodium Chloride (Saline Flush) 2.5 ml FLUSH ASDIRECTED PRN PRN Reason: Keep Vein Open Sodium Chloride (Normal Saline) 10 ml IV ASDIRECTED PRN PRN Reason: IV Use Sterile Water (Sterile Water For Irrigation) 1,000 ml IRR ASDIRECTED PRN PRN Reason: delivery Terbutaline Sulfate (Brethine) 0.25 mg SUBCUT ASDIRECTED PRN PRN Reason: Tacysystole - Exam General: Alert, Oriented, Cooperative, No Acute Distress Lungs: Normal Respiratory Effort Cardiovascular: Regular Rate, Regular Rhythm GI/Abdominal Exam: Soft, Non-Tender (Female) Exam: Normal External Exam Back Exam: Normal Inspection Extremities: Normal Inspection, Normal Capillary Refill Skin: Warm, Dry, Intact Neurological: No New Focal Deficit, Normal Speech, Normal Tone Psy/Mental Status: Alert, Normal Affect, Normal Mood - Problem List & Annotations (1) (spontaneous vaginal delivery) SNOMED Code(s): 930358802 Code(s): O80 - ENCOUNTER FOR FULL-TERM UNCOMPLICATED DELIVERY Status: Acute Priority: High Current Visit: Yes - Problem List Review Problem List Initiated/Reviewed/Updated: Yes - My Orders Last 24 Hours: My Active Orders 07/04/20 Dinner Regular Diet [DIET] 07/04/20 16:14 Patient Status [ADT] Routine May Shower [RC] ASDIRECTED Up ad Alyse [RC] ASDIRECTED Vital Signs [RC] PER UNIT ROUTINE Acetaminophen [Tylenol Extra Strength] 1,000 mg PO Q4H PRN Acetaminophen [Tylenol Extra Strength] 500 mg PO Q4H PRN Benzocaine/Menthol [Dermoplast Pain Relief 20%-0.5% [place]] 78 gm TOP ASDIRECTED PRN Docusate Sodium [Colace] 100 mg PO BID PRN Ibuprofen [Motrin] 400 mg PO Q4H PRN Ibuprofen [Motrin] 800 mg PO Q6H PRN Lanolin [Lansinoh HPA] See Dose Instructions TOP ASDIRECTED PRN bisacodyL [Dulcolax] 10 mg RECTAL ONETIME PRN oxyCODONE 5 mg PO Q2H PRN witch Lauren [Tucks] 1 pad TOP ASDIRECTED PRN Assess Lochia [WOMSER] Per Unit Routine Assess Uterine Involution [WOMSER] Per Unit Routine Peripheral IV Discontinue [OM.PC] Routine Resuscitation Status Routine 07/05/20 05:11 HEMOGLOBIN/HEMATOCRIT,HH [HEME] Timed - Plan Plan:: SROM confirmed via [facility]. Admit for observation in anticipation of of term viable . FHR Cat I. Uterine irritability with occasional contractions noted. Expectant management, reassess cervical dilation between 0000 and 0200. If no change has been make, may administer cytotec per orders. May ambulate and hydrotherapy as desired after reactive NST achieved; repeat NST per orders. May receive epidural if desired between 4-[address] cm[address] new orders. Dr. Shen notified and agreeable with POC. Delivery A: viable female at 1555; epidural for pain relief; APGARs 8/9; weight pending; cord doubly clamped after cessation of pulsing, cut by FOB; placenta delivered grossly intact, flores; 3VC; EBL 250 mL; perineum intact; pitocin to IVF; mom and baby left in stable condition with nurse at bedside for assessment P: Routine plan of care; Dr. Shen updated.
[2020-07-04] MEDS: Ibuprofen 800 MG Tab PO PRN (20:19)
[2020-07-05] MEDS: Ibuprofen 800 MG Tab PO PRN ×2 (04:06→13:39)
--- NOTE | 2020-07-05 06:21 | PCM48HPAN ---
Post Anesthesia Note - EVALUATION WITHIN 48HRS OF ANESTHETIC Vital Signs in Normal Range: Yes Patient Participated in Evaluation: Yes Respiratory Function Stable: Yes Airway Patent: Yes Cardiovascular Function Stable: Yes Hydration Status Stable: Yes Pain Control Satisfactory: Yes Nausea and Vomiting Control Satisfactory: Yes Mental Status Recovered: Yes Vital Signs: Last Vital Signs Temp 36.1 C 07/05/20 04:13 Pulse 70 07/05/20 04:13 Resp 16 07/05/20 04:13 BP 100/61 07/05/20 04:13 Pulse Ox 97 07/05/20 04:13
--- NOTE | 2020-07-05 10:05 | PCM.DCSUM1 ---
Discharge Summary - Hospital Course Free Text/Narrative:: Discharge home with ; follow up in the clinic in 6 weeks for routine visit; sooner, if needed. Diagnosis: Stroke: No Modified [place] Scale: No Symptoms at All Modified Howie Scale Score: 0 - Discharge Data Discharge Date: 07/05/20 Discharge Disposition: Home, Self-Care 01 Condition: Good - Referral to Home Health Primary Care Physician: PCP None - Discharge Diagnosis/Problem(s) (1) (spontaneous vaginal delivery) SNOMED Code(s): 543910865 ICD Code: O80 - ENCOUNTER FOR FULL-TERM UNCOMPLICATED DELIVERY Status: Acute Priority: High Current Visit: Yes - Patient Instructions Diet: Usual Diet as Tolerated, Regular Diet as Tolerated, Drink 8-10+ Glasses/Day Activity: As Tolerated, No Strenuous Activities, Rest and Relax Today Driving: May Drive Today Showering/Bathing: May Shower Notify Provider of: Fever, Increased Pain, Swelling and Redness, Drainage, Nausea and/or Vomiting - Discharge Plan *PRESCRIPTION DRUG MONITORING PROGRAM REVIEWED*: Not Applicable *COPY OF PRESCRIPTION DRUG MONITORING REPORT IN PATIENT JOSIANE: Not Applicable Prescriptions/Med Rec: Ibuprofen [Motrin] 800 mg PO Q6H PRN #90 tablet PRN Reason: Pain Home Medications: Home Meds Pnv No.95/Ferrous Fum/Folic AC [ Caplet] 1 tab PO DAILY 07/03/20 [History] Ibuprofen [Motrin] 800 mg PO Q6H PRN #90 tablet 07/05/20 [Rx] Oxygen Therapy Mode: Room Air - Discharge Summary/Plan Comment DC Time >30 min.: Yes - General Info Date of Service: 07/05/20 Admission Dx/Problem (Free Text: Patient Status Order with Admit Dx/Problem 07/03/20 22:50 Patient Status [ADT] Routine Admission Diagnosis/Problem Admission Diagnosis/Problem 07/03/20 23:04 Marisa is a 29 yo at 39+2 weeks gestation (YASMIN 07/08/2020) that returns to L&D today with C/O leaking of clear fluid since 3:00 pm today confirmed with [facility]. Patient returns for in-patient observation after a brief visit home to complete personal matters; reactive NST, previous SVE C/T/H, confirmed vertex presentation via Haim's and TAUS at bedside all obtained prior to departure ~3 hours ago. Reports adequate movement. Denies pain/contractions and asa vaginal bleeding at this time. A pos, RI, GBS neg. Pertinent medical h istory includes: OVD with kiwi vacuum for maternal exhaustion last . NKDA. Medications: PNV. Patient has no other complaints or concerns at this time. 07/03/20 23:09 Functional Status: Reports: Pain Controlled, Tolerating Diet, Ambulating, Urinating - Review of Systems General: Reports: No Symptoms HEENT: Reports: No Symptoms Pulmonary: Reports: No Symptoms Cardiovascular: Reports: No Symptoms Gastrointestinal: Reports: No Symptoms Genitourinary: Reports: No Symptoms Musculoskeletal: Reports: No Symptoms Skin: Reports: No Symptoms Neurological: Reports: No Symptoms Psychiatric: Reports: No Symptoms - Patient Data Vitals - Most Recent: Last Vital Signs Temp 97 F 07/05/20 04:13 Pulse 70 07/05/20 04:13 Resp 16 07/05/20 04:13 BP 100/61 07/05/20 04:13 Pulse Ox 97 07/05/20 04:13 Weight - Most Recent: 160 lb Lab Results - Last 24 hrs: Laboratory Results - last 24 hr 07/05/20 Range/Units 06:10 Hgb 9.9 L (12.0-16.0) g/dL Hct 31.4 L (36.0-46.0) % Med Orders - Current: Current Medications Acetaminophen (Tylenol Extra Strength) 500 mg PO Q4H PRN PRN Reason: Pain Acetaminophen (Tylenol Extra Strength) 1,000 mg PO Q4H PRN PRN Reason: Pain Benzocaine/Menthol (Dermoplast Pain Relief 20%-0.5% [place]) 78 gm TOP ASDIRECTED PRN PRN Reason: Perineal Comfort Measure Last Admin: 07/04/20 17:47 Dose: 1 spray Documented by: Bisacodyl (Dulcolax) 10 mg RECTAL ONETIME PRN PRN Reason: Constipation Docusate Sodium (Colace) 100 mg PO BID PRN PRN Reason: Constipation Last Admin: 07/04/20 20:20 Dose: 100 mg Documented by: Emollient Ointment (Lansinoh Hpa) 0 gm TOP ASDIRECTED PRN PRN Reason: Sore Nipples Last Admin: 07/04/20 17:58 Dose: 1 tube Documented by: Ibuprofen (Motrin) 400 mg PO Q4H PRN PRN Reason: Pain Ibuprofen (Motrin) 800 mg PO Q6H PRN PRN Reason: Pain Last Admin: 07/05/20 04:06 Dose: 800 mg Documented by: Oxycodone HCl (Oxycodone) 5 mg PO Q2H PRN PRN Reason: Pain Witch Lauren (Tucks) 1 pad TOP ASDIRECTED PRN PRN Reason: comfort care Last Admin: 07/04/20 17:56 Dose: 1 towelette Documented by: Discontinued Medications Butorphanol Tartrate (Stadol) 1 mg IVPUSH Q1H PRN PRN Reason: Pain Carboprost Tromethamine (Hemabate Ds) 250 mcg IM ASDIRECTED PRN PRN Reason: Post Hemorrhage Fentanyl (Sublimaze) Confirm Administered Dose 100 mcg .ROUTE .[employer] ONE Stop: 07/04/20 04:56 Last Admin: 07/05/20 07:40 Dose: Not Given Documented by: Oxytocin/Sodium Chloride (Oxytocin 30 Unit/500 Ml-Ns) 30 unit in 500 mls @ 999 mls/hr IV TITRATE TRAVIS Tranexamic Acid 1,000 mg/ (Sodium Chloride) 110 mls @ 660 mls/hr IV ONETIME PRN PRN Reason: Bleeding Oxytocin/Sodium Chloride (Oxytocin 30 Unit/500 Ml-Ns) 30 unit in 500 mls @ 2 mls/hr IV TITRATE TRAVIS; Protocol Last Titration: 07/04/20 12:59 Dose: 8 munits/min, 8 mls/hr Documented by: Lactated Ringer's (Ringers, Lactated) 1,000 mls @ 150 mls/hr IV ASDIRECTED TRAVIS Last Admin: 07/04/20 15:20 Dose: 150 mls/hr Documented by: Ropivacaine (Naropin 0.2%) Confirm Administered Dose 100 mls @ as directed .ROUTE .[employer]MED ONE Stop: 07/04/20 04:57 Lidocaine HCl (Xylocaine 1%) 50 ml INJECT ONETIME PRN PRN Reason: Laceration repair Methylergonovine Maleate (Methergine) 0.2 mg IM ASDIRECTED PRN PRN Reason: Post Hemorrhage Misoprostol (Cytotec) 200 mcg PO ONETIME PRN PRN Reason: Post Hemorrhage Misoprostol (Cytotec) 25 mcg VAG ONETIME PRN PRN Reason: Cervical Ripening Misoprostol (Cytotec) 25 mcg PO ONETIME PRN PRN Reason: Cervical Ripening Nalbuphine HCl (Nubain) 10 mg IVPUSH Q1H PRN PRN Reason: Pain (severe 7-10) Ondansetron HCl (Zofran) 4 mg IVPUSH Q6H PRN PRN Reason: Nausea/Vomiting Ropivacaine (Naropin 0.2%) Confirm Administered Dose 20 ml .ROUTE .STK-MED ONE Stop: 07/04/20 04:56 Last Admin: 07/05/20 07:40 Dose: Not Given Documented by: Sodium Chloride (Saline Flush) 10 ml FLUSH ASDIRECTED PRN PRN Reason: Keep Vein Open Sodium Chloride (Saline Flush) 2.5 ml FLUSH ASDIRECTED PRN PRN Reason: Keep Vein Open Sodium Chloride (Normal Saline) 10 ml IV ASDIRECTED PRN PRN Reason: IV Use Sterile Water (Sterile Water For Irrigation) 1,000 ml IRR ASDIRECTED PRN PRN Reason: delivery Terbutaline Sulfate (Brethine) 0.25 mg SUBCUT ASDIRECTED PRN PRN Reason: Tacysystole - Exam General: Reports: Alert, Oriented, Cooperative, No Acute Distress Lungs: Reports: Normal Respiratory Effort Cardiovascular: Reports: Regular Rate, Regular Rhythm GI/Abdominal Exam: Soft, Non-Tender (Female) Exam: Deferred Rectal (Female) Exam: Deferred Back Exam: Reports: Normal Inspection, Full Range of Motion Extremities: Normal Inspection, Normal Range of Motion, Non-Tender, Normal Capillary Refill Skin: Reports: Warm, Dry, Intact Neurological: Reports: No New Focal Deficit, Normal Gait, Normal Speech, Normal Tone Psy/Mental Status: Reports: Alert, Normal Affect, Normal Mood
[2020-07-06 04:15] VITALS: BP 101/61; PULSE 57
[2020-07-06] MEDS: Ibuprofen 800 MG Tab PO PRN (05:57)
--- NOTE | 2020-07-06 08:22 | PCM.DCSUM1 ---
Discharge Summary - Hospital Course Free Text/Narrative:: Discharge home with ; follow up in the clinic in 6 weeks for routine visit; sooner, if needed. Diagnosis: Stroke: No Modified [place] Scale: No Symptoms at All Modified Howie Scale Score: 0 - Discharge Data Discharge Date: 07/06/20 Discharge Disposition: Home, Self-Care 01 Condition: Good - Referral to Home Health Primary Care Physician: PCP None - Discharge Diagnosis/Problem(s) (1) (spontaneous vaginal delivery) SNOMED Code(s): 562178189 ICD Code: O80 - ENCOUNTER FOR FULL-TERM UNCOMPLICATED DELIVERY Status: Acute Priority: High Current Visit: Yes - Patient Instructions Diet: Usual Diet as Tolerated, Regular Diet as Tolerated, Drink 8-10+ Glasses/Day Activity: As Tolerated, No Strenuous Activities, Rest and Relax Today Driving: May Drive Today Showering/Bathing: May Shower Notify Provider of: Fever, Increased Pain, Swelling and Redness, Drainage, Nausea and/or Vomiting - Discharge Plan *PRESCRIPTION DRUG MONITORING PROGRAM REVIEWED*: Not Applicable *COPY OF PRESCRIPTION DRUG MONITORING REPORT IN PATIENT JOSIANE: Not Applicable Prescriptions/Med Rec: Lanolin [Lansinoh HPA] 1 tube TOP ASDIRECTED PRN #1 tube PRN Reason: Sore Nipples Ibuprofen [Motrin] 800 mg PO Q6H PRN #90 tablet PRN Reason: Pain Home Medications: Home Meds Pnv No.95/Ferrous Fum/Folic AC [ Caplet] 1 tab PO DAILY 07/03/20 [History] Ibuprofen [Motrin] 800 mg PO Q6H PRN #90 tablet 07/05/20 [Rx] Lanolin [Lansinoh HPA] 1 tube TOP ASDIRECTED PRN #1 tube 07/06/20 [Rx] Oxygen Therapy Mode: Room Air - Discharge Summary/Plan Comment DC Time >30 min.: Yes - General Info Date of Service: 07/06/20 Functional Status: Reports: Pain Controlled, Tolerating Diet, Ambulating, Urinating - Review of Systems General: Reports: No Symptoms HEENT: Reports: No Symptoms Pulmonary: Reports: No Symptoms Cardiovascular: Reports: No Symptoms Gastrointestinal: Reports: No Symptoms Genitourinary: Reports: No Symptoms Musculoskeletal: Reports: No Symptoms Skin: Reports: No Symptoms Neurological: Reports: No Symptoms Psychiatric: Reports: No Symptoms - Patient Data Vitals - Most Recent: Last Vital Signs Temp 97.3 F 07/06/20 04:13 Pulse 57 L 07/06/20 04:13 Resp 14 07/06/20 04:13 BP 101/61 07/06/20 04:13 Pulse Ox 98 07/06/20 04:13 Weight - Most Recent: 160 lb Med Orders - Current: Current Medications Acetaminophen (Tylenol Extra Strength) 500 mg PO Q4H PRN PRN Reason: Pain Acetaminophen (Tylenol Extra Strength) 1,000 mg PO Q4H PRN PRN Reason: Pain Benzocaine/Menthol (Dermoplast Pain Relief 20%-0.5% [place]) 78 gm TOP ASDIRECTED PRN PRN Reason: Perineal Comfort Measure Last Admin: 07/04/20 17:47 Dose: 1 spray Documented by: Bisacodyl (Dulcolax) 10 mg RECTAL ONETIME PRN PRN Reason: Constipation Docusate Sodium (Colace) 100 mg PO BID PRN PRN Reason: Constipation Last Admin: 07/04/20 20:20 Dose: 100 mg Documented by: Emollient Ointment (Lansinoh Hpa) 0 gm TOP ASDIRECTED PRN PRN Reason: Sore Nipples Last Admin: 07/04/20 17:58 Dose: 1 tube Documented by: Ibuprofen (Motrin) 400 mg PO Q4H PRN PRN Reason: Pain Ibuprofen (Motrin) 800 mg PO Q6H PRN PRN Reason: Pain Last Admin: 07/06/20 05:57 Dose: 800 mg Documented by: Oxycodone HCl (Oxycodone) 5 mg PO Q2H PRN PRN Reason: Pain Witch Lauren (Tucks) 1 pad TOP ASDIRECTED PRN PRN Reason: comfort care Last Admin: 07/04/20 17:56 Dose: 1 towelette Documented by: Discontinued Medications Butorphanol Tartrate (Stadol) 1 mg IVPUSH Q1H PRN PRN Reason: Pain Carboprost Tromethamine (Hemabate Ds) 250 mcg IM ASDIRECTED PRN PRN Reason: Post Hemorrhage Fentanyl (Sublimaze) Confirm Administered Dose 100 mcg .ROUTE .STK-MED ONE Stop: 07/04/20 04:56 Last Admin: 07/05/20 07:40 Dose: Not Given Documented by: Oxytocin/Sodium Chloride (Oxytocin 30 Unit/500 Ml-Ns) 30 unit in 500 mls @ 999 mls/hr IV TITRATE TRAVIS Tranexamic Acid 1,000 mg/ (Sodium Chloride) 110 mls @ 660 mls/hr IV ONETIME PRN PRN Reason: Bleeding Oxytocin/Sodium Chloride (Oxytocin 30 Unit/500 Ml-Ns) 30 unit in 500 mls @ 2 mls/hr IV TITRATE TRAVIS; Protocol Last Titration: 07/04/20 12:59 Dose: 8 munits/min, 8 mls/hr Documented by: Lactated Ringer's (Ringers, Lactated) 1,000 mls @ 150 mls/hr IV ASDIRECTED TRAVIS Last Admin: 07/04/20 15:20 Dose: 150 mls/hr Documented by: Ropivacaine (Naropin 0.2%) Confirm Administered Dose 100 mls @ as directed . ROUTE .[employer] ONE Stop: 07/04/20 04:57 Lidocaine HCl (Xylocaine 1%) 50 ml INJECT ONETIME PRN PRN Reason: Laceration repair Methylergonovine Maleate (Methergine) 0.2 mg IM ASDIRECTED PRN PRN Reason: Post Hemorrhage Misoprostol (Cytotec) 200 mcg PO ONETIME PRN PRN Reason: Post Hemorrhage Misoprostol (Cytotec) 25 mcg VAG ONETIME PRN PRN Reason: Cervical Ripening Misoprostol (Cytotec) 25 mcg PO ONETIME PRN PRN Reason: Cervical Ripening Nalbuphine HCl (Nubain) 10 mg IVPUSH Q1H PRN PRN Reason: Pain (severe 7-10) Ondansetron HCl (Zofran) 4 mg IVPUSH Q6H PRN PRN Reason: Nausea/Vomiting Ropivacaine (Naropin 0.2%) Confirm Administered Dose 20 ml .ROUTE .[employer] ONE Stop: 07/04/20 04:56 Last Admin: 07/05/20 07:40 Dose: Not Given Documented by: Sodium Chloride (Saline Flush) 10 ml FLUSH ASDIRECTED PRN PRN Reason: Keep Vein Open Sodium Chloride (Saline Flush) 2.5 ml FLUSH ASDIRECTED PRN PRN Reason: Keep Vein Open Sodium Chloride (Normal Saline) 10 ml IV ASDIRECTED PRN PRN Reason: IV Use Sterile Water (Sterile Water For Irrigation) 1,000 ml IRR ASDIRECTED PRN PRN Reason: delivery Terbutaline Sulfate (Brethine) 0.25 mg SUBCUT ASDIRECTED PRN PRN Reason: Tacysystole - Exam General: Reports: Alert, Oriented, Cooperative, No Acute Distress Lungs: Reports: Normal Respiratory Effort Cardiovascular: Reports: Regular Rate, Regular Rhythm GI/Abdominal Exam: Soft, Non-Tender (Female) Exam: Deferred Rectal (Female) Exam: Deferred Back Exam: Reports: Normal Inspection, Full Range of Motion Extremities: Normal Inspection, Normal Range of Motion, Non-Tender, Normal Capillary Refill Skin: Reports: Warm, Dry, Intact Neurological: Reports: No New Focal Deficit, Normal Speech, Normal Tone Psy/Mental Status: Reports: Alert, Normal Affect, Normal Mood
== END 2020-07-06 15:00 | disposition home or self-care (01) | DRG 807 ==
LOC: MW.OB 15:55 → OBSVTOIN 07-04 15:55 → MW.OB 07-04 18:35
PROVIDERS: ADMIT Obstetrics & Gynecology; ATTEND Obstetrics & Gynecology
PROC: 10E0XZZ Delivery of Products of Conception, External Approach (ICD-10-PCS; principal; 2020-07-04)
PROC: 3E0R3BZ Introduction of Anesthetic Agent into Spinal Canal, Percutaneous Approach (ICD-10-PCS; 2020-07-04)
DX: O80 Encounter for full-term uncomplicated delivery (principal); Z37.0 Single live birth; Z3A.39 39 weeks gestation of pregnancy
CPT/HCPCS: 36415; 51702; 59025; 59409; 85014; 85018; A9270-GY; J2590; J2795; J3010; J7120

== ENCOUNTER 2020-07-03 16:29 | Observation (INO) | payer SELFPAY ==
[2020-07-03] MEDS ORDERED: Misoprostol 200 MCG Tab PO PRN (18:00)
[2020-07-03] MEDS ORDERED: Carboprost Tromethamine 250 MCG/1 ML Amp IM PRN (18:00)
[2020-07-03] MEDS ORDERED: Lidocaine 1% 50 ML MDV INJECT PRN (18:00)
[2020-07-03] MEDS ORDERED: Water For Irrigation,Sterile 1,000 ML Container IRR PRN (18:00)
[2020-07-03] MEDS ORDERED: Sodium Chloride 0.9% 10 ML Syringe FLUSH PRN (18:00)
[2020-07-03] MEDS ORDERED: Oxytocin/0.9 % Sodium Chloride 30 UNIT/500 ML BAG IV SCH (18:00)
[2020-07-03] MEDS ORDERED: Sodium Chloride 0.9% 2.5 ML Syringe FLUSH PRN (18:00)
[2020-07-03] MEDS ORDERED: Tranexamic Acid 1,000 MG in Sodium Chloride 0.9% 100 ML IV PRN (18:00)
[2020-07-03] MEDS ORDERED: Butorphanol 1 MG/ML SDV IVPUSH PRN (18:00)
[2020-07-03] MEDS ORDERED: Methylergonovine 0.2 MG/1 ML Amp IM PRN (18:00)
[2020-07-03] MEDS ORDERED: Ondansetron 4 MG/2 ML SDV IVPUSH PRN (18:00)
[2020-07-03] MEDS ORDERED: Nalbuphine 10 MG/1 ML Vial IVPUSH PRN (18:00)
[2020-07-03] MEDS ORDERED: Sodium Chloride 0.9% 10 ML SDV IV PRN (18:00)
[2020-07-03] MEDS ORDERED: Lactated Ringers 1,000 ML IV SCH (18:00)
--- NOTE | 2020-07-03 21:21 | PCM.PNLD ---
Labor Progress Note - VS & Meds Vital Signs: BP 111/62 (72). RR 18. T 98.0 F. HR 82 Active Medications: Current Medications Discontinued Medications Butorphanol Tartrate (Stadol) 1 mg IVPUSH Q1H PRN PRN Reason: Pain Carboprost Tromethamine (Hemabate Ds) 250 mcg IM ASDIRECTED PRN PRN Reason: Post Hemorrhage Lactated Ringer's (Ringers, Lactated) 1,000 mls @ 150 mls/hr IV ASDIRECTED TRAVIS Oxytocin/Sodium Chloride (Oxytocin 30 Unit/500 Ml-Ns) 30 unit in 500 mls @ 999 mls/hr IV TITRATE TRAVIS Tranexamic Acid 1,000 mg/ (Sodium Chloride) 110 mls @ 660 mls/hr IV ONETIME PRN PRN Reason: Bleeding Lidocaine HCl (Xylocaine 1%) 50 ml INJECT ONETIME PRN PRN Reason: Laceration repair Methylergonovine Maleate (Methergine) 0.2 mg IM ASDIRECTED PRN PRN Reason: Post Hemorrhage Misoprostol (Cytotec) 200 mcg PO ONETIME PRN PRN Reason: Post Hemorrhage Nalbuphine HCl (Nubain) 10 mg IVPUSH Q1H PRN PRN Reason: Pain (severe 7-10) Ondansetron HCl (Zofran) 4 mg IVPUSH Q4H PRN PRN Reason: Nausea/Vomiting Sodium Chloride (Saline Flush) 10 ml FLUSH ASDIRECTED PRN PRN Reason: Keep Vein Open Sodium Chloride (Saline Flush) 2.5 ml FLUSH ASDIRECTED PRN PRN Reason: Keep Vein Open Sodium Chloride (Normal Saline) 10 ml IV ASDIRECTED PRN PRN Reason: IV Use Sterile Water (Sterile Water For Irrigation) 1,000 ml IRR ASDIRECTED PRN PRN Reason: delivery - Uterine Contractions Uterine Monitoring Mode: External [employer] Contraction Frequency (min): Occasional Contraction Duration (sec): 60-100 Contraction Intensity: Mild Uterine Resting Tone: Soft - Monitoring Monitor Mode: External Ultrasound Heart Rate (FHR) Baseline: 130 Heart Rate (FHR) Variability: Moderate (6-25 bmp) Accelerations: Present, 15x15 Decelerations: None Strip Review: Category I - Vaginal Exam Dilation (cm): 0 Effacement (Percent): 30 Station: -3 - Labor Progress (Free Text) Labor Progress: Marisa is a 29 yo at 39+2 weeks gestation (YASMIN 07/08/2019) that presents to L&D today with C/O leaking of clear fluid since 3:00 pm today. Reports adequate movement. Denies pain/contractions or asa vaginal bleeding at this time. A pos, RI, GBS neg. Amnisure collected today: positive. COVID: negative. Pertinent medical history includes: kiwi vacuum with last d/t maternal exhaustion. NKDA. Medications: PNV. Confirmed vertex via Haim's and TAUS completed at bedside. FHR Cat I. SVE C/T/H. Patient educated extensively on RBAs of expectant management at home vs in-facility observation. Patient expresses desire to be discharged home briefly to ambulate, eat, collect items, etc with intent to return back to facility shortly. Patient educated on warning S/Ss, when to return promptly including onset of active labor and decreased movement. Patient verbalizes understanding and reports she lives ~4-5 minutes from facility. CNM agreeable to brief discharge from observation and to check in via telephone in 3-4 hours for update if patient has not returned. Dr. Shen notified and agreeable with POC.
== END 2020-07-03 18:40 | disposition home or self-care (01) ==
LOC: MW.OBCHECK 16:29 → MW.OB 16:31 → MW.OBCHECK 18:00
PROVIDERS: ADMIT Obstetrics & Gynecology; ATTEND Obstetrics & Gynecology
DX: O42.92 Full-term premature rupture of membranes, unspecified as to length of time between rupture and onset of labor (principal); Z3A.39 39 weeks gestation of pregnancy; Z01.812 Encounter for preprocedural laboratory examination; Z20.828 Contact with and (suspected) exposure to other viral communicable diseases
CPT/HCPCS: 59025; 81003; 84112; 85027; 86592; 86850; 86900; 86901; 87635; G0378; 36415; U0002

== ENCOUNTER 2023-08-30 19:13 | Emergency (ER) | payer SELFPAY ==
[2023-08-30] MEDS: Ketorolac 30 MG/ML SDV IVPUSH ONE (19:34)
[2023-08-30] MEDS: Sodium Chloride 0.9% 1,000 ML IV ONE (20:33)
[2023-08-30 20:50] LABS: BASOPHILS ABSOLUTE AUTO 0.04 K/uL (0.00-0.20); BASOPHILS PERCENT AUTO 0.3 % (0.0-1.0); EOSINOPHILS ABSOLUTE AUTO 0.13 K/uL (0.00-0.45); HEMATOCRIT 41.2 % (37.0-47.0); IMMATURE GRAN ABSOLUTE AUTO 0.07 K/uL (0.00-0.05); IMMATURE GRAN PERCENT AUTO 0.5 % (0.0-0.4); LYMPHOCYTES ABSOLUTE AUTO 3.64 K/uL (1.00-4.80); LYMPHOCYTES PERCENT AUTO 26.7 % (24.0-44.0); MEAN CORPUSCULAR VOLUME 85.3 fL (83.0-99.0); MEAN PLATELET VOLUME 9.9 fL (9.4-12.3); MONOCYTES PERCENT AUTO 5.9 % (0.0-8.0); NEUTROPHILS ABSOLUTE AUTO 8.96 K/uL (1.80-7.70); NEUTROPHILS PERCENT AUTO 65.6 % (41.0-71.0); PLATELET COUNT,PLT 276 K/uL (150-400); RED BLOOD CELL COUNT 4.83 M/uL (4.10-5.30); WHITE BLOOD CELL COUNT,WBC 13.64 K/uL (3.9-11.3)
[2023-08-30] MEDS: Benztropine 1 MG Tab PO ONE (21:14)
[2023-08-30] MEDS: Ondansetron 4 MG/2 ML SDV IVPUSH ONE (21:15)
[2023-08-30] MEDS: Morphine 4 MG/ML Syringe IVPUSH ONE (21:15)
[2023-08-30 21:36] LABS: ALANINE AMINOTRANSFERASE,ALT 17 IU/L (14-63); ALBUMIN 4.1 g/dL (3.4-5.0); ALKALINE PHOSPHATASE 94 U/L (46-116); ASPARTATE AMNIOTRANSFERASE,AST 14 IU/L (15-37); BILIRUBIN TOTAL 0.3 mg/dL (0.2-1.0); BLOOD UREA NITROGEN,BUN 18 mg/dL (7.0-18.0); CARBON DIOXIDE,CO2 22.4 mmol/L (21.0-32.0); CHLORIDE,CL 105 mmol/L (98-107); CREATININE 0.8 mg/dL (0.6-1.0); GLUCOSE RANDOM 88 mg/dL (74-106); POTASSIUM,K 3.7 mmol/L (3.5-5.1); PROTEIN TOTAL,TP 8.2 g/dL (6.4-8.2); SODIUM,NA 141 mmol/L (136-145)
[2023-08-30 21:38] LABS: ESTIMATED GFR 101 mL/min (>60)
[2023-08-30 22:16] VITALS: BP 118/72; PULSE 78
== END 2023-08-30 22:16 | disposition home or self-care (01) ==
LOC: MW.ED 19:13
DX: M43.6 Torticollis (principal)
CPT/HCPCS: 36415; 80053; 84703; 85025; 96374; 96375; 99283; A9270; J2270; J2405; J3360; J7030; 99284